=== PATIENT | male | born 1965 | race Caucasian/White ===

== ENCOUNTER → 2018-06-01 | Outpatient (CLI) | payer BC ==
--- NOTE | 2018-06-01 09:57 | CT ---
EXAM: CT Right Lower Extremity With Intravenous Contrast, Foot CLINICAL HISTORY: ITS.REASON CT Reason: M79.671 R foot pain TECHNIQUE: Axial computed tomography images of the right foot with intravenous contrast. CTDI is 9.9 and 9.9 mGy and DLP is 425.8 mGy-cm. This CT exam was performed using one or more of the following dose reduction techniques: automated exposure control, adjustment of the mA and/or kV according to patient size, and/or use of iterative reconstruction technique. 3D reconstructed images were created and reviewed. Coronal reformatted images were created and reviewed. Axial reformatted images were created and reviewed. COMPARISON: No relevant prior studies available. FINDINGS: Bones/joints: Degenerative changes are seen at the tibiotalar joint and tibiofibular joint. Degenerative changes are seen at the tarsometatarsal joints and intertarsal joints and talonavicular joints. Calcifications in the plantar aponeurosis at the level of the calcaneus as well as calcification of the insertion of the Achilles tendon. No acute fracture. No dislocation. Soft tissues: Thickening and subcutaneous edema is seen at the plantar aspect of the lateral forefoot especially in the region of the fifth metatarsophalangeal joint. No evidence of soft tissue gas. No gross bony destruction. The peroneal longus tendon is calcified and mildly rounded in size. No obvious abscess identified. IMPRESSION: Cellulitis of the fifth MTP joint. No evidence of soft tissue gas. No obvious abscess. No gross bony destruction.
== END | disposition home or self-care (01) ==
LOC: RADCTMAIN 08:04
PROVIDERS: ATTEND Orthopaedic Surgery
DX: L03.115 Cellulitis of right lower limb (principal)
CPT/HCPCS: 73702; Q9967

== ENCOUNTER → 2018-08-08 | Outpatient (CLI) | payer BC ==
--- NOTE | 2018-08-09 08:47 | CT ---
EXAMINATION TYPE: CT CervThoracic spine wo con DATE OF EXAM: 08/08/2018 COMPARISON: None HISTORY: Pain CT DLP: [address] of the cervical spine and thoracic spine was performed with bone and soft tissue window settings submitted. Coronal and sagittal reconstruction is obtained. Cervical spine: Moderate degenerative narrowing C4-5, C5-6 and C6-7. Ventral and dorsal spondylosis w ith posterior hard disc noted resulting in borderline central stenosis at C5-6 and C6-7. Bilateral fo raminal encroachment noted at each of these levels. Remaining levels are within normal limits. No fra cture or malalignment present. Thoracic spine: Mild multilevel degenerative disc space narrowing. Ventral spondylosis. No jammie disc herniation seen. Normal alignment. No paraspinal mass. No fracture or subluxation. IMPRESSION: 1. No evidence for fracture or subluxation. 2. Degenerative disc disease as noted. 3. Borderline stenosis at C5-6 and C6-7 with bilateral foraminal encroachment.
== END | disposition home or self-care (01) ==
LOC: RADCTMAIN 16:34
PROVIDERS: ATTEND Family Medicine
DX: M48.02 Spinal stenosis, cervical region (principal); M50.30 Other cervical disc degeneration, unspecified cervical region
CPT/HCPCS: 72125; 72128

== ENCOUNTER 2020-12-07 15:06 | Emergency (ER) | payer BC, OTHER ==
[2020-12-07] MEDS ORDERED: ASPIRIN 81 MG PO STA (15:23)
--- NOTE | 2020-12-07 15:30 | ED ---
Chest Pain HPI - General Chief Complaint: Chest Pain Stated Complaint: anxiety Time Seen by Provider: 12/07/20 15:22 Source: EMS Mode of arrival: EMS Limitations: no limitations - History of Present Illness Initial Comments: Paddy is a 55-year-old male presents the ER today for evaluation of chest pressure, shortness of breath and palpitations. Patient reports that he has no history of anxiety or panic attacks within the past 2 weeks he thinks he's had 6 or 7. He states he feels like his heart is racing, he can't catch his breath. He states that today he's been having pressure in his chest and shortness of breath. Denies any recent fevers chills nausea or vomiting. Denies any history of COVID. Is vaccinated. Patient does note that he has a little bit of psychosocial stressors with a girlfriend issue but not nothing significant to cause his new onset of panic attacks. After workup was initiated patient significant other arrived at bedside and stated that the patient was also previously very heavy drinker, he cut back his drinking 2 weeks ago and this is what precipitated these near panic attacks and episodes of palpitations and tremor. Patient does admit that he was a very heavy drinker and he has cut back significantly. - Related Data Home Medications Medication Instructions Recorded Confirmed Ascorbic Acid/Multivit-Min 1,000 mg PO DAILY 12/07/20 12/07/20 [Emergen-C 1,000 mg Packet] Aspirin EC [Ecotrin Low Dose] 81 mg PO DAILY 12/07/20 12/07/20 Atorvastatin [Lipitor] 20 mg PO DAILY 12/07/20 12/07/20 Ergocalciferol (Vitamin D2) 1,250 mcg PO TH 12/07/20 12/07/20 [Drisdol (50,000 Iu)] HYDROcodone/APAP 7.5-325MG [[place] 1 tab PO TID 12/07/20 12/07/20 7.5-325] Magnesium Oxide 400 mg PO DAILY 12/07/20 12/07/20 Metoprolol Tartrate [Lopressor] 25 mg PO DAILY 12/07/20 12/07/20 Testosterone Cypionate 200 mg IM SA 12/07/20 12/07/20 [Depo-Testosterone] amLODIPine BESYLATE/BENAZEPRIL 1 cap PO DAILY 12/07/20 12/07/20 [amLODIPine BESYLATE/BENAZEPRIL 10-40 MG] Allergies Allergy/AdvReac Type Severity Reaction Status Date / Time No Known Allergies Allergy Verified 12/07/20 20:44 Review of Systems ROS Statement: Those systems with pertinent positive or pertinent negative responses have been documented in the HPI. ROS Other: All systems not noted in ROS Statement are negative. EKG Findings - EKG Comments: EKG Findings:: EKG was obtained due to complaint of chest pressure, EKG was obtained 1509, rate is 98 rhythm is sinus there is in normal axis, there are normal intervals, SD 172, QRS 102, QTc is a 54 there are no acute ST elevations or depressions there is no evidence of acute ischemia or infarction. Past Medical History Past Medical History: Hyperlipidemia, Hypertension Additional Past Medical History / Comment(s): chronic neck pain History of Any Multi-Drug Resistant Organisms: None Reported Past Surgical History: Orthopedic Surgery Additional Past Surgical History / Comment(s): brain surgery for aneurysm Past Psychological History: Anxiety Smoking Status: Former smoker Past Alcohol Use History: None Reported Past Drug Use History: None Reported General Exam - General Exam Comments Initial Comments: Physical Exam GENERAL: Patient is well-developed and well-nourished. Patient is nontoxic and well- hydrated and is in no distress. HENT: Normocephalic, Atraumatic. EYES: PERRL, EOMI PULMONARY: Unlabored respirations. No audible rales rhonchi or wheezing was noted. CARDIOVASCULAR: Tachycardic, regular ABDOMEN: Soft and nontender with normal bowel sounds. SKIN: Skin is clear with no lesions or rashes and otherwise unremarkable. : Deferred NEUROLOGIC: Patient is alert and oriented x3. Moving all extremities spontaneously MUSCULOSKELETAL: Normal extremities with adequate strength and full range of motion. No lower extremity swelling or edema. No calf tenderness. PSYCHIATRIC: Normal psychiatric evaluation. Limitations: no limitations Course Vital Signs 12/07/20 12/07/20 12/07/20 15:08 16:38 18:00 Temperature 98.6 F Pulse Rate 104 H 107 H 100 Respiratory 20 18 18 Rate Blood Pressure 172/108 151/92 149/101 O2 Sat by Pulse 95 95 97 Oximetry 12/07/20 12/07/20 18:57 21:21 Temperature 98.1 F Pulse Rate 111 H 105 H Respiratory 18 18 Rate Blood Pressure 162/105 136/97 O2 Sat by Pulse 99 98 Oximetry Chest Pain MDM - MDM Patient was seen and evaluated history is obtained from the patient Upon arrival patient reported panic attacks palpitations and shortness of breath, initial workup was initiated with concern for PE given the palpitations and tachycardia however after workup was initiated patient's significant other at bedside and tried additional history of patient's previous heavy alcohol use and recent cessation which makes me think the patient has alcohol withdrawal. Labs are relatively unremarkable aside from elevated AST a healthy consistent with alcohol abuse. Lipase minimally elevated with patient not having any epigastric abdominal pain. Computed tomography scan negative. She will be treated with Ativan and magnesium to correct hypomagnesemia and treat anxiety. Patient was given an oral dose of Librium he'll be discharged home he has a scheduled appointment with his primary care tomorrow at noon in which she can t discuss further treatment for management of alcohol addiction. Disposition Clinical Impression: Alcohol withdrawal, Palpitations Disposition: HOME SELF-CARE Condition: Stable Instructions (If sedation given, give patient instructions): Alcohol Withdrawal (DC) Additional Instructions: Follow up with Dr Duarte tomorrow as scheduled Is patient prescribed a controlled substance at d/c from ED?: No Referrals: Quincy Duarte MD [Primary Care Provider] - 1-2 days
--- NOTE | 2020-12-07 15:48 | XR ---
EXAMINATION TYPE: XR chest 2V DATE OF EXAM: 12/07/2020 COMPARISON: 12/07/2020 HISTORY: Chest pain, panic attacks TECHNIQUE: Frontal and lateral views of the chest are obtained. FINDINGS: There is no focal air space opacity, pleural effusion, or pneumothorax seen. The cardiac silhouette size is within normal limits. IMPRESSION: No acute cardiopulmonary process.
[2020-12-07 16:20] LABS: Basophils # (A) 0.1 k/uL (0-0.2); Basophils % (A) 1 %; Eosinophils % (A) 1 %; HCT 40.6 % (39.0-53.0); Lymphocytes # (A) 0.9 k/uL (1.0-4.8); Lymphocytes % (A) 13 %; MCH 33.6 pg (25.0-35.0); MCHC 34.5 g/dL (31.0-37.0); MCV 97.5 fL (80.0-100.0); Mean Platelet Volume 8.4; Monocytes # (A) 0.4 k/uL (0-1.0); Monocytes % (A) 5 %; Neutrophils # (A) 5.8 k/uL (1.3-7.7); Neutrophils % (A) 79 %; Platelet Count 175 k/uL (150-450); RBC 4.16 m/uL (4.30-5.90); RDW 12.2 % (11.5-15.5); WBC 7.3 k/uL (3.8-10.6)
[2020-12-07 16:37] LABS: ALT 111 U/L (4-49); AST 157 U/L (17-59); African American GFR (CKD) >90 (>60 ml/min/1.73 sqM); Albumin 4.3 g/dL (3.5-5.0); Alkaline Phosphatase 67 U/L (38-126); Anion Gap 12 mmol/L; Blood Urea Nitrogen 13 mg/dL (9-20); Calcium 8.9 mg/dL (8.4-10.2); Carbon Dioxide 23 mmol/L (22-30); Chloride 104 mmol/L (98-107); Glucose 109 mg/dL (74-99); Lipase 387 U/L (23-300); Magnesium 1.3 mg/dL (1.6-2.3); Non-African American GFR(CKD) >90 (>60 ml/min/1.73 sqM); Sodium 139 mmol/L (137-145); Total Bilirubin 0.9 mg/dL (0.2-1.3); Total Protein 6.9 g/dL (6.3-8.2)
[2020-12-07 16:39] VITALS: RESP 18
[2020-12-07 16:41] LABS: INR 0.9 (<1.2); Prothrombin Time 10.2 sec (9.0-12.0)
[2020-12-07 16:49] LABS: Partial Thromboplastin Time 21.9 sec (22.0-30.0)
--- NOTE | 2020-12-07 17:18 | CT ---
EXAMINATION TYPE: CT chest angio for PE DATE OF EXAM: 12/07/2020 COMPARISON: None HISTORY: Tachycardia, hypoxia. CT DLP: 477.7 mGycm Automated exposure control for dose reduction was used. CONTRAST: Performed with IV Contrast, patient injected with 100 mL of Isovue 370. Images obtained from the thoracic inlet to the diaphragm with IV contrast and 3-D post processing. The lungs are clear of consolidation. There is no evidence of a pulmonary mass. There is no pleural e ffusion. There is no pericardial effusion. There is diffuse fatty infiltration of the liver. Heart size is normal. There are no hilar masses. There is no mediastinal adenopathy. Thoracic aorta i s intact. There is 4.4 cm aneurysm of the ascending aorta. There is no dissection. There is normal contrast opacification of the pulmonary arteries. There are no filling defects. IMPRESSION: No evidence of pulmonary embolism. Fatty infiltration of the liver. 4.4 cm thoracic aortic aneurysm. This is probably not changed significantly compared to the spine CT scan of 08/08/2018.
[2020-12-07] MEDS ORDERED: LORazepam 2 MG/ML INJ IV STA (19:05)
[2020-12-07] MEDS ORDERED: MAGNESIUM SULFATE-D5W PMX 1 GM in DEXTROSE/WATER 1 100ML.BAG IVPB ONE (19:05)
[2020-12-07] MEDS ORDERED: chlordiazePOXIDE 25 MG CAP PO STA (20:25)
[2020-12-07 21:22] VITALS: BP 136/97; PULSE 105; TEMP 98.1
== END 2020-12-07 21:25 | disposition home or self-care (01) ==
LOC: EC 15:06
DX: F10.239 Alcohol dependence with withdrawal, unspecified (principal); R07.89 Other chest pain; R06.02 Shortness of breath; E78.5 Hyperlipidemia, unspecified; I10 Essential (primary) hypertension; F41.9 Anxiety disorder, unspecified; Z87.891 Personal history of nicotine dependence; Z20.822 Contact with and (suspected) exposure to COVID-19; Z79.82 Long term (current) use of aspirin; Z79.899 Other long term (current) drug therapy; Y90.9 Presence of alcohol in blood, level not specified
CPT/HCPCS: 36415; 93005; 83880; 80053; 83690; 83735; 84484; 85025; 85610; 85730; 87635; 71046; 71275; 99285; 96365; 96375; J2060; J3475; Q9967

== ENCOUNTER 2021-02-02 07:55 | Inpatient (IN) | payer OTHER ==
[2021-02-02] MEDS ORDERED: LORazepam 2 MG/ML INJ IV STA (08:11)
[2021-02-02 08:21] LABS: Basophils # (A) 0.1 k/uL (0-0.2); Basophils % (A) 1 %; Eosinophils # (A) 0.1 k/uL (0-0.7); Eosinophils % (A) 1 %; HCT 46.2 % (39.0-53.0); HGB 15.7 gm/dL (13.0-17.5); Lymphocytes # (A) 1.2 k/uL (1.0-4.8); Lymphocytes % (A) 12 %; MCHC 33.9 g/dL (31.0-37.0); MCV 100.5 fL (80.0-100.0); Mean Platelet Volume 8.1; Monocytes # (A) 0.4 k/uL (0-1.0); Monocytes % (A) 4 %; Neutrophils % (A) 82 %; Platelet Count 192 k/uL (150-450); RDW 13.4 % (11.5-15.5); WBC 9.7 k/uL (3.8-10.6)
[2021-02-02 08:34] LABS: Partial Thromboplastin Time 25.2 sec (22.0-30.0); Prothrombin Time 10.5 sec (9.0-12.0)
[2021-02-02 08:36] LABS: Albumin 4.2 g/dL (3.5-5.0); Magnesium 1.2 mg/dL (1.6-2.3); Potassium 3.6 mmol/L (3.5-5.1); Total Bilirubin 0.4 mg/dL (0.2-1.3); Total Protein 6.9 g/dL (6.3-8.2)
--- NOTE | 2021-02-02 08:37 | XR ---
EXAMINATION TYPE: XR chest 2V DATE OF EXAM: 02/02/2021 COMPARISON: Chest x-ray and CTA chest 08/09/2020 HISTORY: Chest pain and shortness of breath TECHNIQUE: Frontal and lateral views of the chest are obtained. FINDINGS: There is chronic parenchymal change without suspicious new focal air space opacity, pleura l effusion, or pneumothorax seen. The cardiac silhouette size is stable and upper limits of normal. Multilevel spurring in the spine redemonstrated. Overlying EKG leads again seen. IMPRESSION: Chronic changes without acute pulmonary process.
[2021-02-02] MEDS ORDERED: THIAMINE 100 MG TAB PO STA (08:39)
[2021-02-02] MEDS ORDERED: MAGNESIUM SULFATE-D5W PMX 1 GM in DEXTROSE/WATER 1 100ML.BAG IVPB ONE (08:39)
--- NOTE | 2021-02-02 08:45 | ED ---
Chest Pain HPI - General Chief Complaint: Chest Pain Stated Complaint: chest pain Time Seen by Provider: 02/02/21 08:02 Source: patient, EMS, RN notes reviewed Mode of arrival: EMS Limitations: no limitations - History of Present Illness Initial Comments: 55-year-old male presents emergency Department chief complaint of chest discomfort. Patient states started having chest pain this morning he did not feel loss a pressure across his chest and started having some sweating, nausea vomiting. Patient's family room states that they found him on the ground he was groggy it's unclear he had a syncopal episode. Patient went of headache, neck pain. Patient does admit there is a daily drinker and is very shaky. No history of alcohol withdrawal seizures though he states he does have some withdrawal symptoms. Patient denies any nausea vomiting after Zofran given by EMS and states that the nitro took all this pain when his chest. - Related Data Home Medications Medication Instructions Recorded Confirmed Aspirin EC [Ecotrin Low Dose] 81 mg PO DAILY 12/07/20 02/02/21 Atorvastatin [Lipitor] 20 mg PO DAILY 12/07/20 02/02/21 Ergocalciferol (Vitamin D2) 1,250 mcg PO TH 12/07/20 02/02/21 [Drisdol (50,000 Iu)] HYDROcodone/APAP 7.5-325MG [[place] 1 tab PO TID PRN 12/07/20 02/02/21 7.5-325] Metoprolol Tartrate [Lopressor] 25 mg PO BID 12/07/20 02/02/21 Testosterone Cypionate 200 mg IM SA 12/07/20 02/02/21 [Depo-Testosterone] amLODIPine BESYLATE/BENAZEPRIL 1 cap PO DAILY 12/07/20 02/02/21 [amLODIPine BESYLATE/BENAZEPRIL 10-40 MG] Cyclobenzaprine [Flexeril] 10 mg PO TID PRN 02/02/21 02/02/21 Magnesium 500 mg PO DAILY 02/02/21 02/02/21 PARoxetine HCL [Paxil] 10 mg PO BID 02/02/21 02/02/21 chlordiazePOXIDE HCl [Librium] 10 mg PO TID 02/02/21 02/02/21 traZODone HCL [Desyrel] 100 mg PO HS 02/02/21 02/02/21 Allergies Allergy/AdvReac Type Severity Reaction Status Date / Time No Known Allergies Allergy Verified 02/02/21 09:05 Review of Systems ROS Statement: Those systems with pertinent positive or pertinent negative responses have been documented in the HPI. ROS Other: All systems not noted in ROS Statement are negative. EKG Findings - EKG Comments: EKG Findings:: EKG performed at 17:58 sinus tachycardia rate of 102 WA 180 QRS 94 QT/QTC 358/466 Past Medical History Past Medical History: Hyperlipidemia, Hypertension Additional Past Medical History / Comment(s): chronic neck pain History of Any Multi-Drug Resistant Organisms: None Reported Past Surgical History: Orthopedic Surgery Additional Past Surgical History / Comment(s): brain surgery for aneurysm Past Psychological History: Anxiety Smoking Status: Former smoker Past Alcohol Use History: Abuse, Daily, Heavy Past Drug Use History: None Reported General Exam Limitations: no limitations General appearance: alert, in no apparent distress, other (Patient is shaky) Head exam: Present: atraumatic, normocephalic, normal inspection ENT exam: Present: normal exam, mucous membranes moist Neck exam: Present: normal inspection, full ROM. Absent: tenderness, meningismus, lymphadenopathy Respiratory exam: Present: normal lung sounds bilaterally. Absent: respiratory distress, wheezes, rales, rhonchi, stridor Cardiovascular Exam: Present: normal rhythm, tachycardia, normal heart sounds. Absent: systolic murmur, diastolic murmur, rubs, gallop, clicks GI/Abdominal exam: Present: soft, normal bowel sounds. Absent: distended, tenderness, guarding, rebound, rigid Course Vital Signs 02/02/21 02/02/21 08:03 09:37 Temperature 97.8 F Pulse Rate 98 110 H Respiratory 18 18 Rate Blood Pressure 144/95 128/94 O2 Sat by Pulse 98 95 Oximetry Chest Pain MDM - MDM 55-year-old male presented for chest pain. Patient's chest pain resolved after nitro given by EMS. Patient has multiple risk factors. First troponin is negative. Patient did have questional syncopal episode versus seizure. Patient will be admitted for chest pain, alcohol withdrawal, hypomagnesemia. Magnesium was replaced. Disposition Clinical Impression: Chest pain, Syncope, Hypomagnesemia Disposition: ADMITTED IP TO THIS HOSP Condition: Fair Referrals: Quincy Duarte MD [Primary Care Provider] - 1-2 days
[2021-02-02] MEDS ORDERED: ONDANSETRON 4 MG/2 ML VIAL IVP STA (09:38)
[2021-02-02] MEDS ORDERED: MORPHINE SULFATE 4 MG/ML SYRINGE IVP STA (09:38)
--- NOTE | 2021-02-02 11:21 | CT ---
EXAMINATION TYPE: CT chest angio for PE DATE OF EXAM: 02/02/2021 COMPARISON: 12/07/2020 HISTORY: 55-year-old male chest pain TECHNIQUE: Contiguous axial scanning of the chest performed with IV Contrast, patient injected with 1 00 mL of Isovue 370. Coronal/sagittal MIP reconstructions performed. CT DLP: 496 mGycm Automated exposure control for dose reduction was used. FINDINGS: Heart limits of normal in size without pericardial effusion. No flattening of the interventricular se ptum or reflux of contrast into the hepatic veins. Aortic root mildly aneurysmal at 4.0 cm versus 3.8 mm, previously. Suspect some motion artifact large difference. Stable ascending aortic aneurysm at 4.4 cm. Conventional arch vessel branching anatomy. Ectatic upper descending thoracic aorta at 3.6 cm, unchanged. Some borderline-sized mediastinal lymph nodes measuring up to 9 mm lower right paratracheal and small lymph nodes lower left paratracheal measuring up to 7 mm. No thoracic lymphadenopathy by CT size cri teria. There is suboptimal contrast bolus. Further limitations due to breathing motion. No large central or definite lobar branch pulmonary embolus. Multiple segmental and more distal arterial branches are ess entially nondiagnostic especially about the left hilum, for example, axial image 56, 76, and 81. Mild diffuse bronchial wall thickening. Minimal apical paraseptal emphysema. No consolidation or pleu ral effusion. Visualized upper abdomen shows low-attenuation of the hepatic parenchyma and tiny hiatal hernia. Bones: [facility] within the mid and lower thoracic spine. IMPRESSION: 1. EXCESSIVE BREATHING MOTION ARTIFACT ESPECIALLY ABOUT THE LEFT HILUM. SEGMENTAL AND SMALLER ARTERIA L BRANCHES ON THE LEFT, FOR EXAMPLE, AXIAL IMAGES 56, 76, AND 81 ARE NONDIAGNOSTIC AND EMBOLI IN THES E LOCATIONS CANNOT BE EXCLUDED ON THE BASIS OF THIS EXAM. NO LARGE CENTRAL OR DEFINITE LOBAR BRANCH E MBOLUS. 2. ANEURYSMAL ASCENDING AORTA 4.4 CM, UNCHANGED COMPARED TO RECENT 12/07/2020 PRIOR. 3. HEPATIC STEATOSIS.
[2021-02-02] MEDS ORDERED: NITROGLYCERIN SL TABS 0.4 MG TAB SUBLINGUAL PRN (11:26)
[2021-02-02] MEDS ORDERED: LORazepam 2 MG/ML INJ IV PRN (11:38)
--- NOTE | 2021-02-02 12:42 | P.HPIM ---
<Edenilson Guzmán - Last Filed: 02/02/21 17:44> History of Present Illness H&P Date: 02/02/21 History of Presenting Illness: Patient is a 55-year-old male with a past medical history of hypertension, hyperlipidemia, and EtOH use/abuse reportedly drinking 1 quart or more of whiskey daily. Patient presented to the emergency department today with a chief complaint of chest pain accompanied by nausea, vomiting, diaphoresis, and tremors. Patient was reportedly found on the ground by family after unknown down time. Patient reports last time drinking was yesterday morning and he is actively withdrawing. Patient reports last time withdrawing from alcohol was approximately 9 years ago and reports daily drinking since. He reports he used to drink approximately 1 pint a day but states over the last year this has significantly increased and he is drinking a minimum of a quart of whiskey daily. Patient denies history of withdrawal seizures but does state that he starts "withdrawing bad" if he goes too long without alcohol. Patient denies having headache, lightheadedness, dizziness, changes in his vision or hearing, palpitations, shortness of breath, abdominal pain, nausea, or experiencing any numbness/tingling/weakness in his extremities. Patient reports chest pain has resided. Patient was seen and fully evaluated in the emergency department. CBC unremarkable. BMP unremarkable. Hypomagnesemia with magnesium of 1.2, replaced. Liver enzymes elevated with AST of 146 and ALP of 95. Lipase also slightly elevated at 472. Serum alcohol level 29. D-dimer slightly elevated at 1.98. CT PE negative for acute central large pulmonary emboli or definite lobar branch emboli, however did reveal an aortic aneurysm of the ascending aorta measuring 4.4 cm unchanged from previous examination, and hepatic steatosis. Chest x-ray negative for acute cardiopulmonary process. EKG showing sinus tachycardia at 102 bpm with no noted T-wave or ST abnormalities. Patient ad mitted under our services for atypical chest pain along with acute alcohol withdrawal. Cardiology consulted. Review of systems: Pertinent positives and negatives as discussed in HPI, a complete review of systems was performed and all other systems are negative. Physical exam: Vital signs reviewed and stable. General: Nontoxic, patient appears in mild distress secondary to physical signs of withdrawal including diaphoresis and tremors. Derm: Skin diaphoretic, warm, and normal coloration. Head: Atraumatic, normocephalic and symmetric. Eyes: EOMs intact, no lid lag, and anicteric sclera Mouth: no lip lesions, mucus membranes moist Cardiovascular: Tachycardic rate with regular rhythm with normal S1S2, no murmur, positive posterior tibial pulses bilaterally, and cap refill < 2 seconds. Lungs: Respirations even, regular, and unlabored on room air. Lungs CTA bilaterally, no rhonchi, no rales, no wheezing, and no accessory muscle usage. Abdominal: soft, nontender to palpation, no guarding, no appreciable organomegaly Ext: ROM intact. No gross muscle atrophy, no edema, no contractures Neuro: Speech clear, face symmetrical and CN II-XII grossly intact with no noted focal neuro deficits. Moderate tremors noted. Psych: Alert and oriented to person, place, time, and situation. Appropriate and pleasant affect. Patient denies visual, tactile, or auditory hallucinations. Assessment and Plan of Care: Atypical chest pain, likely secondary to acute alcohol withdrawal vs ACS -Troponins 0.013, 0.014, and 0.017 -EKG showing sinus tachycardia at 102 bpm with no noted T-wave or ST abnormalities. -Cardiology consulted -Telemetry monitoring -Continue daily aspirin, atorvastatin, metoprolol. -Echocardiogram -Lipid profile and hemoglobin A1c with a.m. labs Acute Alcohol withdrawal Syncopal episode, possible alcohol withdrawal seizure -Serum alcohol 29 -Telemetry monitoring -[facility] protocol with symptom triggered medication management -Consult to social work for assistance with possible rehabilitation placement upon discharge versus providing patient with outpatient resources available to him. Seizure precautions, fall precautions, and aspiration precautions in place. Daily thiamine Hypomagnesemia Magnesium 1.2, replaced with 3 g IVPB We will continue to monitor with repeat a.m. labs and replace electrolyte abnormalities as needed. Hypertension Monitor vital signs and continue daily medication regimen with amlodipine, lisinopril, and metoprolol. Hyperlipidemia Continue daily medication regimen with atorvastatin 20 mg nightly. The patient is admitted with an anticipated greater than 2 midnight stay for evaluation of atypical chest pain and acute alcohol withdrawal CODE STATUS: Full code DVT prophylaxis: Heparin Discussed with: Patient and RN Anticipated discharge date: Clinical course to determine Anticipated discharge place: Home versus inpatient drug and alcohol rehabilitation Center A total of 45 minutes was spent on the care of this complex patient more than 50% of the time was spent in counseling and care coordination. Past Medical History Past Medical History: Hyperlipidemia, Hypertension Additional Past Medical History / Comment(s): chronic neck pain History of Any Multi-Drug Resistant Organisms: None Reported Past Surgical History: Orthopedic Surgery Additional Past Surgical History / Comment(s): brain surgery for aneurysm Past Psychological History: Anxiety Smoking Status: Former smoker Past Alcohol Use History: Abuse, Daily, Heavy Past Drug Use History: None Reported Medications and Allergies Home Medications Medication Instructions Recorded Confirmed Type Aspirin EC [Ecotrin Low Dose] 81 mg PO DAILY 12/07/20 02/02/21 History Atorvastatin [Lipitor] 20 mg PO DAILY 12/07/20 02/02/21 History Ergocalciferol (Vitamin D2) 1,250 mcg PO TH 12/07/20 02/02/21 History [Drisdol (50,000 Iu)] HYDROcodone/APAP 7.5-325MG [[place] 1 tab PO TID PRN 12/07/20 02/02/21 History 7.5-325] Metoprolol Tartrate [Lopressor] 25 mg PO BID 12/07/20 02/02/21 History Testosterone Cypionate 200 mg IM SA 12/07/20 02/02/21 History [Depo-Testosterone] amLODIPine BESYLATE/BENAZEPRIL 1 cap PO DAILY 12/07/20 02/02/21 History [amLODIPine BESYLATE/BENAZEPRIL 10-40 MG] Cyclobenzaprine [Flexeril] 10 mg PO TID PRN 02/02/21 02/02/21 History Magnesium 500 mg PO DAILY 02/02/21 02/02/21 History PARoxetine HCL [Paxil] 10 mg PO BID 02/02/21 02/02/21 History chlordiazePOXIDE HCl [Librium] 10 mg PO TID 02/02/21 02/02/21 History traZODone HCL [Desyrel] 100 mg PO HS 02/02/21 02/02/21 History Allergies Allergy/AdvReac Type Severity Reaction Status Date / Time No Known Allergies Allergy Verified 02/02/21 09:05 Physical Exam Vitals: Vital Signs Temp Pulse Resp BP Pulse Ox 02/02/21 09:37 110 H 18 128/94 95 02/02/21 08:03 97.8 F 98 18 144/95 98 Intake and Output 02/01/21 02/02/21 02/02/21 22:59 06:59 14:59 Other: Weight 104.326 kg Results CBC & Chem 7: 02/02/21 08:13 02/02/21 08:13 Labs: Abnormal Lab Results - Last 24 Hours (Table) 02/02/21 02/02/21 02/02/21 Range/Units 08:13 08:13 08:13 MCV 100.5 H (80.0-100.0) fL Neutrophils # 8.0 H (1.3-7.7) k/uL D-Dimer 1.90 H (<0.60) mg/L FEU Carbon Dioxide 17 L (22-30) mmol/L Glucose 110 H (74-99) mg/dL Magnesium 1.2 L (1.6-2.3) mg/dL AST 146 H (17-59) U/L ALT 95 H (4-49) U/L Lipase 472 H (23-300) U/L <Jennifer Vanegas - Last Filed: 02/02/21 19:45> History of Present Illness Patient seen and examined independently. Patient was also seen by Edenilson Guzmán NP and case was discussed. I am in agreement with subjective, physical exam, assessment and plan as written above and amended below. Patient seen intermittently get himself back in bed. Heart rate is 150, blood pressure 155/108. He reports nausea, headache, diaphoresis, inability to sit still, and anxiety. He reports he thinks is getting worse throughout the day today. With family present at bedside we discussed that he'll get an additional 2 mg of Ativan, increases Librium dosing. He may get worse before he gets better. We discussed alcohol withdrawal can be life-threatening. Patient has not, day without drinking in the last 9 years. He has been drinking more heavily it sounds like to him that morning alcohol withdrawal upon waking. General: Ill-appearing, diaphoretic, no distress, appears at stated age Derm: warm, dry Head: atraumatic, normocephalic, symmetric Eyes: EOMI, no lid lag, anicteric sclera Mouth: no lip lesion, mucus membranes moist Cardiovascular: S1S2 tachycardic, positive posterior tibial pulse bilateral, Lungs: CTA bilateral, no rhonchi, no rales , no accessory muscle use Abdominal: soft, nontender to palpation, no guarding, no appreciable organomegaly Ext: no gross muscle atrophy, no edema, no contractures Neuro: CN II-XI grossly intact, no focal neuro deficits no tremors Psych: Alert, oriented, appropriate affect , inability to sit still Physical Exam Osteopathic Statement: *. No significant issues noted on an osteopathic structural exam other than those noted in the History and Physical/Consult. Vitals: Vital Signs Temp Pulse Resp BP Pulse Ox 02/02/21 18:39 97.8 F 109 H 18 132/83 94 L 02/02/21 17:18 107 H 18 147/98 95 02/02/21 16:12 98 18 138/94 95 02/02/21 13:49 103 H 18 124/93 98 02/02/21 12:49 123 H 18 155/105 96 02/02/21 09:37 110 H 18 128/94 95 02/02/21 08:03 97.8 F 98 18 144/95 98 Intake and Output 02/02/21 02/02/21 02/02/21 06:59 14:59 22:59 Other: Weight 104.326 kg Results CBC & Chem 7: 02/02/21 08:13 02/02/21 08:13 Labs: Abnormal Lab Results - Last 24 Hours (Table) 02/02/21 02/02/21 02/02/21 Range/Units 08:13 08:13 08:13 MCV 100.5 H (80.0-100.0) fL Neutrophils # 8.0 H (1.3-7.7) k/uL D-Dimer 1.90 H (<0.60) mg/L FEU Carbon Dioxide 17 L (22-30) mmol/L Glucose 110 H (74-99) mg/dL Magnesium 1.2 L (1.6-2.3) mg/dL AST 146 H (17-59) U/L ALT 95 H (4-49) U/L Lipase 472 H (23-300) U/L
[2021-02-02] MEDS: LORazepam 2 MG/ML INJ IV PRN ×3 (12:53→20:22)
[2021-02-02] MEDS ORDERED: PROCHLORPERAZINE INJ 10 MG/2 ML VIAL IVP PRN (17:43)
[2021-02-02] MEDS: PANTOPRAZOLE 40 MG/10 ML VIAL IVP SCH (18:41)
[2021-02-02] MEDS: MAGNESIUM SULFATE-D5W PMX 1 GM in DEXTROSE/WATER 1 100ML.BAG IVPB SCH ×2 (18:42→19:52)
[2021-02-02] MEDS: HYDROcodone/APAP 7.5-325MG 1 EACH TAB PO PRN (18:43)
[2021-02-02] MEDS: METOPROLOL TARTRATE 25 MG TAB PO SCH (21:05)
[2021-02-02] MEDS: traZODone HCL 100 MG TAB PO SCH (21:05)
[2021-02-02] MEDS: PARoxetine 10 MG TAB PO SCH (22:11)
[2021-02-03] MEDS: HEPARIN SODIUM,PORCINE/PF 5,000 UNIT/0.5 ML SYRINGE SQ SCH ×3 (01:47→17:16)
[2021-02-03] MEDS: LORazepam 2 MG/ML INJ IV PRN ×3 (03:31→17:17)
[2021-02-03] MEDS: lisinopriL 20 MG TAB PO SCH (08:44)
[2021-02-03] MEDS: amLODIPine 10 MG TAB PO SCH (08:44)
[2021-02-03] MEDS: ATORVASTATIN 20 MG TAB PO SCH (08:44)
[2021-02-03] MEDS: ASPIRIN 81 MG PO SCH (08:44)
[2021-02-03] MEDS: MAGNESIUM OXIDE 400 MG TAB PO SCH (08:45)
[2021-02-03] MEDS: PANTOPRAZOLE 40 MG/10 ML VIAL IVP SCH (08:45)
[2021-02-03] MEDS: METOPROLOL TARTRATE 25 MG TAB PO SCH ×2 (08:45→21:34)
[2021-02-03] MEDS ORDERED: ASPIRIN 325 MG TAB PO SCH (09:00)
[2021-02-03] MEDS ORDERED: DOBUTamine DRIP for NUC MED 500 MG in DEXTROSE/WATER 1 250ML.BAG IV PRN (09:19)
[2021-02-03] MEDS: HYDROcodone/APAP 7.5-325MG 1 EACH TAB PO PRN ×3 (09:47→22:40)
[2021-02-03] MEDS: PARoxetine 10 MG TAB PO SCH ×2 (09:48→22:40)
[2021-02-03 10:19] LABS: HCT 41.3 % (39.0-53.0); HGB 13.9 gm/dL (13.0-17.5); MCH 33.8 pg (25.0-35.0); MCHC 33.6 g/dL (31.0-37.0); MCV 100.7 fL (80.0-100.0); Mean Platelet Volume 8.9; Platelet Count 151 k/uL (150-450); RBC 4.11 m/uL (4.30-5.90); RDW 12.6 % (11.5-15.5); WBC 4.9 k/uL (3.8-10.6)
[2021-02-03 10:35] LABS: ALT 88 U/L (4-49); AST 157 U/L (17-59); African American GFR (CKD) >90 (>60 ml/min/1.73 sqM); Albumin 3.4 g/dL (3.5-5.0); Alkaline Phosphatase 75 U/L (38-126); Anion Gap 6 mmol/L; Blood Urea Nitrogen 9 mg/dL (9-20); Calcium 8.7 mg/dL (8.4-10.2); Carbon Dioxide 27 mmol/L (22-30); Chloride 101 mmol/L (98-107); Glucose 166 mg/dL (74-99); Magnesium 1.7 mg/dL (1.6-2.3); Non-African American GFR(CKD) >90 (>60 ml/min/1.73 sqM); Potassium 3.4 mmol/L (3.5-5.1); Sodium 134 mmol/L (137-145)
--- NOTE | 2021-02-03 11:00 | ECHOF ---
Referral Reason:chest pain MEASUREMENTS -------- HEIGHT: 182.9 cm WEIGHT: 104.3 kg BP: 128/94 RVIDd: 3.6 cm (< 3.3) IVSd: 1.6 cm (0.6 - 1.1) LVIDd: 3.4 cm (3.9 - 5.3) LVPWd: 1.4 cm (0.6 - 1.1) IVSs: 2.0 cm LVIDs: 2.5 cm LVPWs: 1.9 cm LA Diam: 3.2 cm (2.7 - 3.8) LAESV Index (A-L): 31.18 ml/m Ao Diam: 4.2 cm (2.0 - 3.7) AV Cusp: 2.2 cm (1.5 - 2.6) MV EXCURSION: 20.130 mm (> 18.000) MV EF SLOPE: 220 mm/s (70 - 150) EPSS: 0.2 cm MV E Jewel: 0.58 m/s MV DecT: 156 ms MV A Jewel: 0.90 m/s MV E/A Ratio: 0.64 FINDINGS -------- Resting tachycardia (HR>100bpm). This was a technically adequate study. The left ventricular size is normal. There is moderate concentric left ventricular hypertrophy. O verall left ventricular systolic function is normal with, an EF between 60 - 65 %. The right ventricle is mildly enlarged. Normal LA size by volume 22+/-6 ml/m2. The right atrium is normal in size. Interatrial and interventricular septum intact. The aortic valve is trileaflet, and appears structurally normal. No aortic stenosis or regurgitation. The mitral valve is normal. Trace tricuspid regurgitation present. Unable to estimate RVSP due to inadequate TR jet spectral do ppler profile. The pulmonic valve was not well visualized. 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 IVC Not well visulized. There is no pericardial effusion. CONCLUSIONS -------- 1. Resting tachycardia (HR>100bpm). 2. The left ventricular size is normal. 3. There is moderate concentric left ventricular hypertrophy. 4. Overall left ventricular systolic function is normal with, an EF between 60 - 65 %. 5. The right ventricle is mildly enlarged. 6. Normal LA size by volume 22+/-6 ml/m2. 7. The aortic valve is trileaflet, and appears structurally normal. No aortic stenosis or regurgitati on. 8. Trace tricuspid regurgitation present. 9. 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 10. There is no pericardial effusion. OPERATIONS EXAMINER: Brissa Pereira RDCS
--- NOTE | 2021-02-03 11:05 | P.CRDCN ---
History of Present Illness History of present illness: HISTORY OF PRESENTING ILLNESS This is a pleasant 55-year-old male past medical history significant for hypertension, dyslipidemia and alcohol abuse. 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 We have been asked to see in consultation for chest pain. He states he has been sober since November until last week. He started drinking heavily again last week. Yesterday he woke up feeling unwell. He states he felt tired, shaky and short of breath. He knew something bad was going to happen so he put his dog and is Cage and unlocked his front door. The next thing he remembers is being woke up on the floor of his kitchen. Apparently his girlfriend found him there passed out. He states he does recall feeling some chest pressure prior to passing out. He said his heart was racing extremely fast. He has had no further symptoms of chest discomfort or palpitations since arriving at the hospital. EKG on arrival reveals sinus tachycardia. Telemetry tracings reveal sinus rhythm with intermittent episodes of tachycardia all sinus in origin. Chest x-ray is negative for acute cardiopulmonary process. CTA is nondiagnostic for a large pulmonary embolism however due to significant movement artifact unable to comp letely rule out. Laboratory data reviewed, CBC unremarkable, d-dimer 1.9, sodium 134, potassium 3.4, creatinine 0.89, magnesium on admission 1.2 after supplementation 1.7, cardiac enzymes negative 3, lipase 472 and alcohol level XXIX. Crit daily cardiac medications include metoprolol 25 mg twice a day, aspirin 81 mg daily, atorvastatin 20 mg daily and amlodipine/benazepril 10/40 mg daily. Echocardiogram obtained this admission reveals preserved LV systolic function with ejection fraction 60-65%. REVIEW OF SYSTEMS At the time of my exam: CONSTITUTIONAL: Denies fever or chills. CARDIOVASCULAR: Denies chest pain, shortness of breath, orthopnea, PND or palpitations. RESPIRATORY: Denies cough. GASTROINTESTINAL: Denies abdominal pain, diarrhea, constipation, nausea or vomiting. MUSCULOSKELETAL: Denies myalgias. NEUROLOGIC: Denies numbness, tingling, headache or weakness. ENDOCRINE: Denies fatigue, weight change, polydipsia or polyurina. GENITOURINARY: Denies burning, hematuria or urgency with micturation. HEMATOLOGIC: Denies history of anemia or bleeding. PHYSICAL EXAMINATION Blood pressure 134/89 heart rate 90 afebrile and maintaining oxygen saturation on room air. CONSTITUTIONAL: No apparent distress. HEENT: Head is normocephalic. Pupils are equal, round. Sclerae anicteric. Mucous membranes of the mouth are moist. No JVD. No carotid bruit. CHEST EXAMINATION: Lungs are clear to auscultation. No chest wall tenderness is noted on palpation or with deep breathing. HEART EXAMINATION: Regular rate and rhythm. S1, S2 heard. No murmurs, gallops or rub. ABDOMEN: Soft, nontender. EXTREMITIES: 2+ peripheral pulses, no lower extremity edema and no calf tenderness. NEUROLOGIC EXAMINATION: Patient is awake, alert and oriented x3. ASSESSMENT Chest pain Syncope Alcohol abuse Possible alcohol withdrawal Hypertension Dyslipidemia Hypomagnesemia PLAN An acute coronary event has been ruled out. No evidence of wall motion abnormalities noted on echocardiogram and EKG unremarkable. Symptoms possibly related to an arrhythmia. Patient has eaten and had all of his medications this morning therefore we will postpone stress testing until tomorrow morning. Perform dobutamine stress echocardiogram to assess for stress-induced ischemia also evaluated for possible inducing arrhythmia. Alcohol cessation strongly recommended. Replace magnesium per protocol. Further recommendations to follow based upon clinical course. Thank you kindly for this consultation. Nurse Practitioner note has been reviewed, I agree with a documented findings and plan of care. Patient was seen and examined. Past Medical History Past Medical History: Hyperlipidemia, Hypertension Additional Past Medical History / Comment(s): chronic neck pain History of Any Multi-Drug Resistant Organisms: None Reported Past Surgical History: Orthopedic Surgery Additional Past Surgical History / Comment(s): brain surgery for aneurysm Past Psychological History: Anxiety Smoking Status: Former smoker Past Alcohol Use History: Abuse, Daily, Heavy Past Drug Use History: None Reported Medications and Allergies Home Medications Medication Instructions Recorded Confirmed Type Aspirin EC [Ecotrin Low Dose] 81 mg PO DAILY 12/07/20 02/02/21 History Atorvastatin [Lipitor] 20 mg PO DAILY 12/07/20 02/02/21 History Ergocalciferol (Vitamin D2) 1,250 mcg PO TH 12/07/20 02/02/21 History [Drisdol (50,000 Iu)] HYDROcodone/APAP 7.5-325MG [[place] 1 tab PO TID PRN 12/07/20 02/02/21 History 7.5-325] Metoprolol Tartrate [Lopressor] 25 mg PO BID 12/07/20 02/02/21 History Testosterone Cypionate 200 mg IM SA 12/07/20 02/02/21 History [Depo-Testosterone] amLODIPine BESYLATE/BENAZEPRIL 1 cap PO DAILY 12/07/20 02/02/21 History [amLODIPine BESYLATE/BENAZEPRIL 10-40 MG] Cyclobenzaprine [Flexeril] 10 mg PO TID PRN 02/02/21 02/02/21 History Magnesium 500 mg PO DAILY 02/02/21 02/02/21 History PARoxetine HCL [Paxil] 10 mg PO BID 02/02/21 02/02/21 History chlordiazePOXIDE HCl [Librium] 10 mg PO TID 02/02/21 02/02/21 History traZODone HCL [Desyrel] 100 mg PO HS 02/02/21 02/02/21 History Allergies Allergy/AdvReac Type Severity Reaction Status Date / Time No Known Allergies Allergy Verified 02/02/21 09:05 Physical Exam Vitals: Vital Signs Temp Pulse Pulse Resp BP BP Pulse Ox 02/03/21 04:00 98.0 F 80 18 146/84 97 02/03/21 02:00 101 H 18 02/03/21 00:00 97.4 F L 101 H 18 152/95 98 02/02/21 20:00 98.2 F 101 H 18 158/98 96 02/02/21 18:39 97.8 F 109 H 18 132/83 94 L 02/02/21 17:18 107 H 18 147/98 95 02/02/21 16:12 98 18 138/94 95 02/02/21 14:04 98.2 F 100 18 149/97 95 02/02/21 13:49 103 H 18 124/93 98 02/02/21 12:49 123 H 18 155/105 96 02/02/21 09:37 110 H 18 128/94 95 Intake and Output 02/02/21 02/03/21 02/03/21 22:59 06:59 14:59 Intake Total 340 Balance 340 Intake: Intake, IV Titration 100 Amount Magnesium Sulfate-D5w Pmx 100 1 gm In Dextrose/Water 1 100ml.bag @ 100 mls/hr IVPB Q1H [facility] Rx#: [id number] Oral 240 Other: Voiding Method Toilet Toilet Urinal Urinal # Voids 1 2 Weight 102.5 kg Results 02/03/21 09:15 02/03/21 09:15 Cardiac Enzymes 02/02/21 02/02/21 02/02/21 Range/Units 08:13 08:13 11:47 AST 146 H (17-59) U/L Troponin I 0.013 0.014 (0.000-0.034) ng/mL 02/02/21 Range/Units 14:10 AST (17-59) U/L Troponin I 0.017 (0.000-0.034) ng/mL Coagulation 02/02/21 Range/Units 08:13 PT 10.5 (9.0-12.0) sec APTT 25.2 (22.0-30.0) sec Comprehensive Metabolic Panel 02/02/21 Range/Units 08:13 Sodium 138 (137-145) mmol/L Potassium 3.6 (3.5-5.1) mmol/L Chloride 105 (98-107) mmol/L Carbon Dioxide 17 L (22-30) mmol/L BUN 20 (9-20) mg/dL Creatinine 1.13 (0.66-1.25) mg/dL Glucose 110 H (74-99) mg/dL Calcium 9.0 (8.4-10.2) mg/dL AST 146 H (17-59) U/L ALT 95 H (4-49) U/L Alkaline Phosphatase 111 (38-126) U/L Total Protein 6.9 (6.3-8.2) g/dL Albumin 4.2 (3.5-5.0) g/dL Current Medications Generic Name Dose Route Start Last Admin Trade Name Freq PRN Reason Stop Dose Admin Hydrocodone Bitart/Acetaminophen 1 each 02/02/21 14:00 02/02/21 18:43 Hydrocodone/Apap 7.5-325mg 1 Each Tab PO 1 each TID PRN Administration Pain Amlodipine Besylate 10 mg 02/03/21 09:00 Amlodipine 10 Mg Tab PO DAILY [facility] Aspirin 81 mg 02/03/21 09:00 Aspirin 81 Mg PO DAILY [facility] Atorvastatin Calcium 20 mg 02/03/21 09:00 Atorvastatin 20 Mg Tab PO DAILY [facility] Chlordiazepoxide HCl 20 mg 02/03/21 09:00 Chlordiazepoxide 10 Mg Cap PO TID [facility] Ergocalciferol 1,250 mcg 02/04/21 09:00 Ergocalciferol 1,250 Mcg (50,000 Iu) Capsule PO Th@0900 [facility] Heparin Sodium (Porcine) 5,000 unit 02/03/21 00:00 02/03/21 01:47 Heparin Sodium,Porcine/Pf 5,000 Unit/0.5 Ml Syringe SQ Not Given Q8HR [facility] Lisinopril 40 mg 02/03/21 09:00 Lisinopril 20 Mg Tab PO DAILY [facility] Lorazepam 1 mg 02/02/21 11:38 02/03/21 03:31 Lorazepam 2 Mg/Ml Inj IV 1 mg Q2HR PRN Administration CIWA 8 or 9 Lorazepam 1 mg 02/02/21 11:38 Lorazepam 2 Mg/Ml Inj IV Q1HR PRN CIWA 10 to 15 Lorazepam 2 mg 02/02/21 11:38 02/02/21 18:18 Lorazepam 2 Mg/Ml Inj IV 02/04/21 11:38 2 mg Q10M PRN Administration CIWA 16 or higher Magnesium Oxide 400 mg 02/03/21 09:00 Magnesium Oxide 400 Mg Tab PO DAILY [facility] Metoprolol Tartrate 25 mg 02/02/21 21:00 02/02/21 21:05 Metoprolol Tartrate 25 Mg Tab PO 25 mg BID [facility] Administration Nitroglycerin 0.4 mg 02/02/21 11:26 Nitroglycerin Sl Tabs 0.4 Mg Tab SUBLINGUAL Q5M PRN Chest Pain Pantoprazole Sodium 40 mg 02/02/21 18:30 02/02/21 18:41 Pantoprazole 40 Mg/10 Ml Vial IVP 40 mg DAILY [facility] Administration Paroxetine HCl 10 mg 02/02/21 21:00 02/02/21 22:11 Paroxetine 10 Mg Tab PO Not Given BID [facility] Prochlorperazine Edisylate 10 mg 02/02/21 17:43 02/02/21 20:13 Prochlorperazine Inj 10 Mg/2 Ml Vial IVP 10 mg Q6H PRN Administration Nausea Trazodone HCl 100 mg 02/02/21 21:00 02/02/21 21:05 Trazodone Hcl 100 Mg Tab PO 100 mg HS [facility] Administration Intake and Output 02/02/21 02/03/21 02/03/21 22:59 06:59 14:59 Intake Total 340 Balance 340 Intake: Intake, IV Titration 100 Amount Magnesium Sulfate-D5w Pmx 100 1 gm In Dextrose/Water 1 100ml.bag @ 100 mls/hr IVPB Q1H [facility] Rx#: [id number] Oral 240 Other: Voiding Method Toilet Toilet Urinal Urinal # Voids 1 2 Weight 102.5 kg 02/02/21 08:13 02/02/21 08:13
[2021-02-03] MEDS ORDERED: POTASSIUM CHLORIDE ER 20 MEQ TAB.ER PO STA (16:40)
--- NOTE | 2021-02-03 16:47 | P.PN ---
<Edenilson Guzmán - Last Filed: 02/03/21 16:35> Subjective Progress Note Date: 02/03/21 History of Presenting Illness: Patient is a 55-year-old male with a past medical history of hypertension, hyperlipidemia, and EtOH use/abuse reportedly drinking 1 quart or more of whiskey daily. Patient presented to the emergency department today with a chief complaint of chest pain accompanied by nausea, vomiting, diaphoresis, and tremors. Patient was reportedly found on the ground by family after unknown down time. Patient reports last time drinking was yesterday morning and he is actively withdrawing. Patient reports last time withdrawing from alcohol was approximately 9 years ago and reports daily drinking since. He reports he used to drink approximately 1 pint a day but states over the last year this has significantly increased and he is drinking a minimum of a quart of whiskey daily. Patient denies history of withdrawal seizures but does state that he starts "withdrawing bad" if he goes too long without alcohol. Patient denies having headache, lightheadedness, dizziness, changes in his vision or hearing, palpitations, shortness of breath, abdominal pain, nausea, or experiencing any numbness/tingling/weakness in his extremities. Patient reports chest pain has resided. Patient was seen and fully evaluated in the emergency department. CBC unremarkable. BMP unremarkable. Hypomagnesemia with magnesium of 1.2, replaced. Liver enzymes elevated with AST of 146 and ALP of 95. Lipase also slightly elevated at 472. Serum alcohol level 29. D-dimer slightly elevated at 1.98. CT PE negative for acute central large pulmonary emboli or definite lobar branch emboli, however did reveal an aortic aneurysm of the ascending aorta measuring 4.4 cm unchanged from previous examination, and hepatic steatosis. Chest x-ray negative for acute cardiopulmonary process. EKG showing sinus tachycardia at 102 bpm with no noted T-wave or ST abnormalities. Patient admitted under our services for atypical chest pain along with acute alcohol withdrawal. Cardiology consulted. : Patient seen and fully evaluated at the bedside this morning. He received a total of 8 mg of Ativan and 30 mg of Librium over the past 12 hours. Patient continues with obvious signs and symptoms of withdrawal including mild tremors, diaphoresis, tachycardia and his reports of anxiety. Patient does report improvement of symptoms and stating Ativan is helping to control. Librium discontinued secondary to availability and patient placed on scheduled Valium 10 mg twice daily for replacement along with continuation of CIWA protocol. Patient denies having any headache, lightheadedness, dizziness, chest pain, palpitations, shortness of breath, abdominal pain, nausea, vomiting, or experiencing any numbness/tingling/weakness in his extremities. Patient continues to deny having any tactile, auditory, or visual hallucinations. Echocardiogram was completed revealing a preserved EF of 60-65% with no significant valvular abnormalities. Physical exam: Vital signs reviewed and stable. General: Nontoxic, patient appears in mild distress secondary to physical signs of withdrawal including diaphoresis and tremors. Derm: Skin diaphoretic, warm, and normal coloration. Head: Atraumatic, normocephalic and symmetric. Eyes: EOMs intact, no lid lag, and anicteric sclera Mouth: no lip lesions, mucus membranes moist Cardiovascular: Tachycardic rate with regular rhythm with normal S1S2, no murmur, positive posterior tibial pulses bilaterally, and cap refill < 2 seconds. Lungs: Respirations even, regular, and unlabored on room air. Lungs CTA bilaterally, no rhonchi, no rales, no wheezing, and no accessory muscle usage. Abdominal: soft, nontender to palpation, no guarding, no appreciable organomegaly Ext: ROM intact. No gross muscle atrophy, no edema, no contractures Neuro: Speech clear, face symmetrical and CN II-XII grossly intact with no noted focal neuro deficits. Mild tremors noted. Psych: Alert and oriented to person, place, time, and situation. Appropriate and pleasant affect. Patient denies visual, tactile, or auditory hallucinations. Assessment and Plan of Care: Atypical chest pain, acute coronary event ruled out -Troponins 0.013, 0.014, and 0.017 -EKG showing sinus tachycardia at 102 bpm with no noted T-wave or ST abnormalities. -Cardiology consulted, recommending dobutamine stress echocardiogram to assess for stress-induced ischemia or possible inducing arrhythmia -Telemetry monitoring -Continue daily aspirin, atorvastatin, metoprolol. -Echocardiogram revealing a preserved EF 60-65% with no significant valvular abnormalities Acute Alcohol withdrawal Syncopal episode, possible alcohol withdrawal seizure -Serum alcohol 29 -Telemetry monitoring -[facility] protocol with symptom triggered medication management -Consult to social work for assistance with possible rehabilitation placement upon discharge versus providing patient with outpatient resources available to him. Seizure precautions, fall precautions, and aspiration precautions in place. Daily thiamine Hypomagnesemia Replaced We will continue to monitor with repeat a.m. labs and replace abnormal electrol yte abnormalities as needed. Hyperkalemia Replaced We will continue to monitor with repeat a.m. labs and replace electrolyte abnormalities as needed. Hypertension Monitor vital signs and continue daily medication regimen with amlodipine, lisinopril, and metoprolol. Hyperlipidemia Continue daily medication regimen with atorvastatin 20 mg nightly. The patient is admitted with an anticipated greater than 2 midnight stay for evaluation of atypical chest pain and acute alcohol withdrawal CODE STATUS: Full code DVT prophylaxis: Heparin Discussed with: Patient and RN Anticipated discharge date: Clinical course to determine Anticipated discharge place: Home versus inpatient drug and alcohol rehabilitation Center A total of 45 minutes was spent on the care of this complex patient more than 50% of the time was spent in counseling and care coordination. Objective - Vital Signs Vital signs: Vital Signs Temp 98.5 F 02/03/21 08:25 Pulse 90 02/03/21 08:25 Resp 18 02/03/21 08:25 BP 134/89 02/03/21 08:25 Pulse Ox 95 02/03/21 08:25 Intake & Output 02/02/21 02/03/21 02/03/21 18:59 06:59 18:59 Intake Total 340 236 Balance 340 236 Weight 104.326 kg 102.5 kg Intake: Intake, IV Titration 100 Amount Magnesium Sulfate-D5w Pmx 100 1 gm In Dextrose/Water 1 100ml.bag @ 100 mls/hr IVPB Q1H [facility] Rx#: [id number] Oral 240 236 Other: Voiding Method Toilet Urinal # Voids 2 - Labs CBC & Chem 7: 02/03/21 09:15 02/03/21 09:15 Labs: Abnormal Lab Results - Last 24 Hours (Table) 02/02/21 Range/Units 08:13 D-Dimer 1.90 H (<0.60) mg/L FEU <Jennifer Vanegas - Last Filed: 02/03/21 20:23> Subjective Patient seen and examined independently. Patient was also seen by Edenilson Guzmán NP and case was discussed. I am in agreement with subjective, physical exam, assessment and plan as written above and amended below. Patient reports his alcohol withdrawal was better this morning, then got worse during the afternoon and is now better again after Ativan. He still having a slight headache, some nausea, some tremulousness, and some diaphoresis. General: non toxic, no distress, appears at stated age Derm: warm, dry, no diaphoresis Head: atraumatic, normocephalic, symmetric Eyes: EOMI, no lid lag, anicteric sclera Mouth: no lip lesion, mucus membranes moist Cardiovascular: S1S2 reg, no murmur, positive posterior tibial pulse bilateral, Lungs: CTA bilateral, no rhonchi, no rales , no accessory muscle use Neuro: CN II-XI grossly intact, no focal neuro deficits, slight resting tremor noted Psych: Alert, oriented, appropriate affect Objective - Vital Signs Vital signs: Vital Signs Temp 98.0 F 02/03/21 15:48 Pulse 73 02/03/21 15:48 Resp 16 02/03/21 15:48 BP 128/84 02/03/21 15:48 Pulse Ox 93 L 02/03/21 15:48 Intake & Output 02/03/21 02/03/21 02/04/21 06:59 18:59 06:59 Intake Total 340 596 Balance 340 596 Weight 102.5 kg Intake: Intake, IV Titration 100 Amount Magnesium Sulfate-D5w Pmx 100 1 gm In Dextrose/Water 1 100ml.bag @ 100 mls/hr IVPB Q1H [facility] Rx#: [id number] Oral 240 596 Other: Voiding Method Toilet Toilet Urinal Urinal # Voids 2 2 # Bowel Movements 2 - Labs CBC & Chem 7: 02/03/21 09:15 02/03/21 09:15 Labs: Abnormal Lab Results - Last 24 Hours (Table) 02/03/21 02/03/21 Range/Units 09:15 09:15 RBC 4.11 L (4.30-5.90) m/uL MCV 100.7 H (80.0-100.0) fL Sodium 134 L (137-145) mmol/L Potassium 3.4 L (3.5-5.1) mmol/L Glucose 166 H (74-99) mg/dL AST 157 H (17-59) U/L ALT 88 H (4-49) U/L Total Protein 6.0 L (6.3-8.2) g/dL Albumin 3.4 L (3.5-5.0) g/dL
[2021-02-03] MEDS: MAGNESIUM SULFATE-D5W PMX 1 GM in DEXTROSE/WATER 1 100ML.BAG IVPB SCH ×2 (17:15→19:09)
[2021-02-03] MEDS: THIAMINE 100 MG TAB PO SCH (17:16)
[2021-02-03 18:23] LABS: Cholesterol 127 mg/dL (0-200); LDL Cholesterol,Calculated 53.6 mg/dL (0.0-131.0)
[2021-02-03] MEDS: diazePAM 5 MG TAB PO SCH (19:09)
[2021-02-03] MEDS ORDERED: diazePAM 5 MG TAB PO SCH (21:00)
[2021-02-03] MEDS: traZODone HCL 100 MG TAB PO SCH (21:34)
[2021-02-04] MEDS: HEPARIN SODIUM,PORCINE/PF 5,000 UNIT/0.5 ML SYRINGE SQ SCH ×4 (02:33→22:14)
[2021-02-04] MEDS: HYDROcodone/APAP 7.5-325MG 1 EACH TAB PO PRN ×2 (07:49→16:03)
[2021-02-04] MEDS: diazePAM 5 MG TAB PO SCH ×2 (07:50→23:09)
[2021-02-04] MEDS: THIAMINE 100 MG TAB PO SCH (07:51)
[2021-02-04] MEDS: MAGNESIUM OXIDE 400 MG TAB PO SCH (07:51)
[2021-02-04] MEDS: PARoxetine 10 MG TAB PO SCH ×2 (07:51→21:58)
[2021-02-04] MEDS: ASPIRIN 81 MG PO SCH (07:51)
[2021-02-04] MEDS: METOPROLOL TARTRATE 25 MG TAB PO SCH ×2 (07:51→21:14)
[2021-02-04] MEDS: lisinopriL 20 MG TAB PO SCH (07:51)
[2021-02-04] MEDS: amLODIPine 10 MG TAB PO SCH (07:52)
[2021-02-04] MEDS: ATORVASTATIN 20 MG TAB PO SCH (07:52)
[2021-02-04] MEDS: PANTOPRAZOLE 40 MG/10 ML VIAL IVP SCH (07:52)
[2021-02-04] MEDS ORDERED: diazePAM 5 MG TAB PO SCH (09:00)
[2021-02-04] MEDS ORDERED: ERGOCALCIFEROL 1,250 MCG (50,000 IU) CAPSULE PO SCH (09:00)
[2021-02-04 10:17] LABS: African American GFR (CKD) >90 (>60 ml/min/1.73 sqM); Anion Gap 6 mmol/L; Blood Urea Nitrogen 8 mg/dL (9-20); Calcium 8.9 mg/dL (8.4-10.2); Carbon Dioxide 27 mmol/L (22-30); Chloride 103 mmol/L (98-107); Glucose 128 mg/dL (74-99); Magnesium 1.9 mg/dL (1.6-2.3); Non-African American GFR(CKD) >90 (>60 ml/min/1.73 sqM); Potassium 4.3 mmol/L (3.5-5.1); Sodium 136 mmol/L (137-145)
[2021-02-04] MEDS: LORazepam 2 MG/ML INJ IV PRN ×4 (10:40→22:14)
--- NOTE | 2021-02-04 11:26 | P.PN ---
Subjective HISTORY OF PRESENTING ILLNESS This is a pleasant 55-year-old male past medical history significant for hypertension, dyslipidemia and alcohol abuse. 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 We have been asked to see in consultation for chest pain. He states he has been sober since November until last week. He started drinking heavily again last week. Yesterday he woke up feeling unwell. He states he felt tired, shaky and short of breath. He knew something bad was going to happen so he put his dog and is Cage and unlocked his front door. The next thing he remembers is being woke up on the floor of his kitchen. Apparently his girlfriend found him there passed out. He states he does recall feeling some chest pressure prior to passing out. He said his heart was racing extremely fast. He has had no further symptoms of chest discomfort or palpitations since arriving at the hospital. EKG on arrival reveals sinus tachycardia. Telemetry tracings reveal sinus rhythm with intermittent episodes of tachycardia all sinus in origin. Chest x-ray is negative for acute cardiopulmonary process. CTA is nondiagnostic for a large pulmonary embolism however due to significant movement artifact unable to completely rule out. Laboratory data reviewed, CBC unremarkable, d-dimer 1.9, sodium 134, potassium 3.4, creatinine 0.89, magnesium on admission 1.2 after supplementation 1.7, cardiac enzymes negative 3, lipase 472 and alcohol level XXIX. Crit daily cardiac medications include metoprolol 25 mg twice a day, aspirin 81 mg daily, atorvastatin 20 mg daily and amlodipine/benazepril 10/40 mg daily. Echocardiogram obtained this admission reveals preserved LV systolic function with ejection fraction 60-65%. 02/04/2021 Patient seen and examined sitting up in the chair in no acute distress. He denies symptoms of chest discomfort. Breathing is stable. Blood pressure 138/77 heart rate 76 afebrile maintaining oxygen saturation on room air. Laboratory data reviewed, sodium 136, potassium 4.3, creatinine 0.81 and magnesium 1.9. Telemetry tracings reveal persistent sinus mechanism. PHYSICAL EXAMINATION CONSTITUTIONAL: No apparent distress. HEENT: Head is normocephalic. Pupils are equal, round. Sclerae anicteric. Mucous membranes of the mouth are moist. No JVD. No carotid bruit. CHEST EXAMINATION: Lungs are clear to auscultation. No chest wall tenderness is noted on palpation or with deep breathing. HEART EXAMINATION: Regular rate and rhythm. S1, S2 heard. No murmurs, gallops or rub. EXTREMITIES: 2+ peripheral pulses, no lower extremity edema and no calf tenderness. ASSESSMENT Chest pain Syncope Alcohol abuse Possible alcohol withdrawal Hypertension Dyslipidemia Hypomagnesemia PLAN Proceed with stress test as previously ordered. If stress test is normal he may be discharged from a cardiac perspective. If abnormal we will consider coronary angiography. Further outpatient arrhythmia evaluation per Dr. Rajput. Follow up upon discharge with Dr. Rajput. Nurse Practitioner note has been reviewed, I agree with a documented findings and plan of care. Patient was seen and examined. Objective - Vital Signs Vital signs: Vital Signs Temp 98 F 02/04/21 07:27 Pulse 76 02/04/21 11:07 Resp 16 02/04/21 11:07 BP 138/77 02/04/21 11:07 Pulse Ox 95 02/04/21 11:07 Intake & Output 02/03/21 02/04/21 02/04/21 18:59 06:59 18:59 Intake Total 596 Balance 596 Weight 105.5 kg Intake: Oral 596 Other: Voiding Method Toilet Toilet Toilet Urinal Urinal Urinal # Voids 2 # Bowel Movements 2 - Labs CBC & Chem 7: 02/03/21 09:15 02/04/21 08:52 Labs: Abnormal Lab Results - Last 24 Hours (Table) 02/04/21 Range/Units 08:52 Sodium 136 L (137-145) mmol/L BUN 8 L (9-20) mg/dL Glucose 128 H (74-99) mg/dL
--- NOTE | 2021-02-04 13:23 | P.PN ---
<Edenilson Guzmán - Last Filed: 02/04/21 13:16> Subjective Progress Note Date: 02/04/21 History of Presenting Illness: Patient is a 55-year-old male with a past medical history of hypertension, hyperlipidemia, and EtOH use/abuse reportedly drinking 1 quart or more of whiskey daily. Patient presented to the emergency department today with a chief complaint of chest pain accompanied by nausea, vomiting, diaphoresis, and tremors. Patient was reportedly found on the ground by family after unknown down time. Patient reports last time drinking was yesterday morning and he is actively withdrawing. Patient reports last time withdrawing from alcohol was approximately 9 years ago and reports daily drinking since. He reports he used to drink approximately 1 pint a day but states over the last year this has significantly increased and he is drinking a minimum of a quart of whiskey daily. Patient denies history of withdrawal seizures but does state that he starts "withdrawing bad" if he goes too long without alcohol. Patient denies having headache, lightheadedness, dizziness, changes in his vision or hearing, palpitations, shortness of breath, abdominal pain, nausea, or experiencing any numbness/tingling/weakness in his extremities. Patient reports chest pain has resided. Patient was seen and fully evaluated in the emergency department. CBC unremarkable. BMP unremarkable. Hypomagnesemia with magnesium of 1.2, replaced. Liver enzymes elevated with AST of 146 and ALP of 95. Lipase also slightly elevated at 472. Serum alcohol level 29. D-dimer slightly elevated at 1.98. CT PE negative for acute central large pulmonary emboli or definite lobar branch emboli, however did reveal an aortic aneurysm of the ascending aorta measuring 4.4 cm unchanged from previous examination, and hepatic steatosis. Chest x-ray negative for acute cardiopulmonary process. EKG showing sinus tachycardia at 102 bpm with no noted T-wave or ST abnormalities. Patient admitted under our services for atypical chest pain along with acute alcohol withdrawal. Cardiology consulted. 02/03/21: Patient seen and fully evaluated at the bedside this morning. He received a total of 8 mg of Ativan and 30 mg of Librium over the past 12 hours. Patient continues with obvious signs and symptoms of withdrawal including mild tremors, diaphoresis, tachycardia and his reports of anxiety. Patient does report improvement of symptoms and stating Ativan is helping to control. Librium discontinued secondary to availability and patient placed on scheduled Valium 10 mg twice daily for replacement along with continuation of CIWA protocol. Patient denies having any headache, lightheadedness, dizziness, chest pain, palpitations, shortness of breath, abdominal pain, nausea, vomiting, or experiencing any numbness/tingling/weakness in his extremities. Patient continues to deny having any tactile, auditory, or visual hallucinations. Echocardiogram was completed revealing a preserved EF of 60-65% with no significant valvular abnormalities. 02/04/21: Patient again seen and fully evaluated at bedside this morning. He was sitting up on the edge of bed and appeared to be doing quite well this morning. Patient no longer had any tremors noted. Skin was warm and dry. Patient received a total of 2 mg of Ativan throughout the evening and night. Patient was on 10 mg a scheduled Valium twice daily and this morning secondary to significant improvement we will decrease to 7.5 mg twice daily and attempt to wean off. Had long discussion with patient regarding importance of alcohol cessation and risks of continued use up to and including . Patient states that he would like to quit and requesting assistance because he states he is fearful secondary to his "extreme anxiety". Patient continues to deny having any headache, lightheadedness, dizziness, chest pain, palpitations, shortness of breath, or experiencing any numbness/tingling/weakness in his extremities. Social work on consult and to discuss with patient potential for inpatient drug and alcohol rehab versus outpatient resources available to him. Vital signs and laboratory values are within normal limits this morning. Physical exam: Vital signs reviewed and stable. General: Nontoxic, patient appears in mild distress secondary to physical signs of withdrawal including diaphoresis and tremors. Derm: Skin diaphoretic, warm, and normal coloration. Head: Atraumatic, normocephalic and symmetric. Eyes: EOMs intact, no lid lag, and anicteric sclera Mouth: no lip lesions, mucus membranes moist Cardiovascular: Tachycardic rate with regular rhythm with normal S1S2, no murmur, positive posterior tibial pulses bilaterally, and cap refill < 2 seconds. Lungs: Respirations even, regular, and unlabored on room air. Lungs CTA bilaterally, no rhonchi, no rales, no wheezing, and no accessory muscle usage. Abdominal: soft, nontender to palpation, no guarding, no appreciable organomegaly Ext: ROM intact. No gross muscle atrophy, no edema, no contractures Neuro: Speech clear, face symmetrical and CN II-XII grossly intact with no noted focal neuro deficits. Mild tremors noted. Psych: Alert and oriented to person, place, time, and situation. Appropriate and pleasant affect. Patient denies visual, tactile, or auditory hallucinations. Assessment and Plan of Care: Atypical chest pain, acute coronary event ruled out -Troponins 0.013, 0.014, and 0.017 -EKG showing sinus tachycardia at 102 bpm with no noted T-wave or ST abnorm alities. -Cardiology consulted, recommending dobutamine stress echocardiogram to assess for stress-induced ischemia or possible inducing arrhythmia -Telemetry monitoring -Continue daily aspirin, atorvastatin, metoprolol. -Echocardiogram revealing a preserved EF 60-65% with no significant valvular ab normalities Acute Alcohol withdrawal Syncopal episode, possible alcohol withdrawal seizure -Serum alcohol 29 upon arrival -Telemetry monitoring -[facility] protocol with symptom triggered medication management -Consult to social work for assistance with possible rehabilitation placement upon discharge versus providing patient with outpatient resources available to him. Seizure precautions, fall precautions, and aspiration precautions in place. Daily thiamine Scheduled Valium decreased to 7.5 mg twice daily. Hypomagnesemia Replaced. We will continue to monitor with repeat a.m. labs and replace abnormal electro lyte abnormalities as needed. Hyperkalemia Replaced We will continue to monitor with repeat a.m. labs and replace electrolyte abnormalities as needed. Hypertension Monitor vital signs and continue daily medication regimen with amlodipine, lisinopril, and metoprolol. Hyperlipidemia Continue daily medication regimen with atorvastatin 20 mg nightly. The patient is admitted with an anticipated greater than 2 midnight stay for evaluation of atypical chest pain and acute alcohol withdrawal CODE STATUS: Full code DVT prophylaxis: Heparin Discussed with: Patient and RN Anticipated discharge date: Clinical course to determine, if patient continues to improve likely discharge tomorrow. Anticipated discharge place: Home versus inpatient drug and alcohol rehabilitation Center A total of 45 minutes was spent on the care of this complex patient more than 50% of the time was spent in counseling and care coordination. Objective - Vital Signs Vital signs: Vital Signs Temp 98 F 02/04/21 07:27 Pulse 77 02/04/21 08:00 Resp 16 02/04/21 08:00 BP 140/88 02/04/21 07:27 Pulse Ox 95 02/04/21 07:27 Intake & Output 02/03/21 02/04/21 02/04/21 18:59 06:59 18:59 Intake Total 596 Balance 596 Weight 105.5 kg Intake: Oral 596 Other: Voiding Method Toilet Toilet Toilet Urinal Urinal Urinal # Voids 2 # Bowel Movements 2 - Labs CBC & Chem 7: 02/03/21 09:15 02/04/21 08:52 Labs: Abnormal Lab Results - Last 24 Hours (Table) 02/03/21 02/03/21 Range/Units 09:15 09:15 RBC 4.11 L (4.30-5.90) m/uL MCV 100.7 H (80.0-100.0) fL Sodium 134 L (137-145) mmol/L Potassium 3.4 L (3.5-5.1) mmol/L Glucose 166 H (74-99) mg/dL AST 157 H (17-59) U/L ALT 88 H (4-49) U/L Total Protein 6.0 L (6.3-8.2) g/dL Albumin 3.4 L (3.5-5.0) g/dL <Jennifer Vanegas - Last Filed: 02/04/21 18:50> Subjective Patient seen and examined independently. Patient was also seen by Edenilson Guzmán NP and case was discussed. I am in agreement with subjective, physical exam, assessment and plan as written above and amended below. He is feeling somewhat less anxious than earlier. Having a slight headache, no nausea, not having any really exert things crawling on his arms, no hallucinations. He was adverse to inpatient rehab and failure to this episode. We had a long discussion stating that he would benefit from rehabilitation and detox support. General: Nontoxic, no distress, appears at stated age Derm: warm, dry, no diaphoresis Head: atraumatic, normocephalic, symmetric Eyes: EOMI, no lid lag, anicteric sclera Mouth: no lip lesion, mucus membranes moist Cardiovascular: S1S2 reg, no murmur, positive posterior tibial pulse bilateral, Lungs: CTA bilateral, no rhonchi, no rales , no accessory muscle use Abdominal: soft, nontender to palpation, no guarding, no appreciable organomegaly Ext: no gross muscle atrophy, no edema, no contractures Neuro: CN II-XI grossly intact, no focal neuro deficits, mild resting tremor Psych: Alert, oriented, appears anxious Objective - Vital Signs Vital signs: Vital Signs Temp 97.8 F 02/04/21 14:26 Pulse 79 02/04/21 14:26 Resp 17 02/04/21 14:26 BP 129/67 02/04/21 14:26 Pulse Ox 98 02/04/21 14:26 Intake & Output 02/03/21 02/04/21 02/04/21 18:59 06:59 18:59 Intake Total 596 238 Balance 596 238 Weight 105.5 kg 105.5 kg Intake: Oral 596 238 Other: Voiding Method Toilet Toilet Toilet Urinal Urinal Urinal # Voids 2 2 # Bowel Movements 2 - Labs CBC & Chem 7: 02/03/21 09:15 02/04/21 08:52 Labs: Abnormal Lab Results - Last 24 Hours (Table) 02/04/21 Range/Units 08:52 Sodium 136 L (137-145) mmol/L BUN 8 L (9-20) mg/dL Glucose 128 H (74-99) mg/dL
[2021-02-04] MEDS: traZODone HCL 100 MG TAB PO SCH (21:14)
[2021-02-05] MEDS: HYDROcodone/APAP 7.5-325MG 1 EACH TAB PO PRN ×3 (06:53→21:54)
[2021-02-05 08:52] LABS: HCT 40.9 % (39.0-53.0); HGB 13.6 gm/dL (13.0-17.5); MCH 33.7 pg (25.0-35.0); MCHC 33.3 g/dL (31.0-37.0); MCV 101.1 fL (80.0-100.0); Mean Platelet Volume 9.1; Platelet Count 143 k/uL (150-450); RBC 4.05 m/uL (4.30-5.90); RDW 12.5 % (11.5-15.5); WBC 4.1 k/uL (3.8-10.6)
[2021-02-05 08:53] LABS: African American GFR (CKD) >90 (>60 ml/min/1.73 sqM); Anion Gap 4 mmol/L; Blood Urea Nitrogen 10 mg/dL (9-20); Calcium 9.3 mg/dL (8.4-10.2); Carbon Dioxide 28 mmol/L (22-30); Chloride 105 mmol/L (98-107); Glucose 124 mg/dL (74-99); Magnesium 1.6 mg/dL (1.6-2.3); Non-African American GFR(CKD) >90 (>60 ml/min/1.73 sqM); Potassium 4.2 mmol/L (3.5-5.1); Sodium 137 mmol/L (137-145)
--- NOTE | 2021-02-05 09:08 | P.STRESS ---
- Stress Test Note Stress Test Results/Findings: Exam Performed: dobutamine stress echo Exam Date: 02/04/21 Reason for Exam: Chest Pain Height: 6 ft Weight: 107.3 kg Protocol: Dobutamine Stage: 40 Duration of Exercise: 9:19 Resting Heart Rate: 62 Resting Blood Pressure: 129/92 Maximum Achieved Heart Rate: 139 Maximum Achieved Blood Pressure: 166/95 85% PMHR: 139 100% PMHR: 163 METS: na Technologist Comment: Stress Test Results/Findings: His is a 55-year-old gentleman with history of hypertension, hypercholesteremia, and smoking history, being evaluated for symptoms of chest pain and shortness of breath. Stress data: Baseline EKG showed sinus rhythm with normal DE and QRS duration. Blood pressure at rest is 120 02/17/1984 with pulse rate of 62. Patient walked on the Romaine protocol for 9 minutes 19 seconds achieving a maximal heart rate of 139 with a blood pressure 166/95. EKGs taken during and after exercise did not reveal any changes of ischemia. Patient did not experience any chest pain. No arrhythmias are noted. Echo data: Baseline echo images show normal wall motion and thickening. Exercise echo images showed augmentation of wall motion and thickening in all the segments. Final impression: #1. Negative stress test #2. Negative stress echo.
[2021-02-05] MEDS: THIAMINE 100 MG TAB PO SCH (09:44)
[2021-02-05] MEDS: MAGNESIUM OXIDE 400 MG TAB PO SCH (09:44)
[2021-02-05] MEDS: METOPROLOL TARTRATE 25 MG TAB PO SCH ×2 (09:44→21:54)
[2021-02-05] MEDS: HEPARIN SODIUM,PORCINE/PF 5,000 UNIT/0.5 ML SYRINGE SQ SCH ×3 (09:44→21:59)
[2021-02-05] MEDS: PARoxetine 10 MG TAB PO SCH (09:44)
[2021-02-05] MEDS: lisinopriL 20 MG TAB PO SCH (09:44)
[2021-02-05] MEDS: ASPIRIN 81 MG PO SCH (09:44)
[2021-02-05] MEDS: PANTOPRAZOLE 40 MG/10 ML VIAL IVP SCH (09:45)
[2021-02-05] MEDS: amLODIPine 10 MG TAB PO SCH (09:45)
[2021-02-05] MEDS: ATORVASTATIN 20 MG TAB PO SCH (09:45)
[2021-02-05] MEDS: diazePAM 5 MG TAB PO SCH ×2 (09:45→21:57)
[2021-02-05 11:39] LABS: Glucose,Whole Blood 94 mg/dL (75-99)
[2021-02-05] MEDS: LORazepam 2 MG/ML INJ IV PRN ×3 (11:47→20:05)
--- NOTE | 2021-02-05 15:08 | P.PN ---
<Edenilson Guzmán - Last Filed: 02/05/21 15:02> Subjective Progress Note Date: 02/05/21 History of Presenting Illness: Patient is a 55-year-old male with a past medical history of hypertension, hyperlipidemia, and EtOH use/abuse reportedly drinking 1 quart or more of whiskey daily. Patient presented to the emergency department today with a chief complaint of chest pain accompanied by nausea, vomiting, diaphoresis, and tremors. Patient was reportedly found on the ground by family after unknown down time. Patient reports last time drinking was yesterday morning and he is actively withdrawing. Patient reports last time withdrawing from alcohol was approximately 9 years ago and reports daily drinking since. He reports he used to drink approximately 1 pint a day but states over the last year this has significantly increased and he is drinking a minimum of a quart of whiskey daily. Patient denies history of withdrawal seizures but does state that he starts "withdrawing bad" if he goes too long without alcohol. Patient denies having headache, lightheadedness, dizziness, changes in his vision or hearing, palpitations, shortness of breath, abdominal pain, nausea, or experiencing any numbness/tingling/weakness in his extremities. Patient reports chest pain has resided. Patient was seen and fully evaluated in the emergency department. CBC unremarkable. BMP unremarkable. Hypomagnesemia with magnesium of 1.2, replaced. Liver enzymes elevated with AST of 146 and ALP of 95. Lipase also slightly elevated at 472. Serum alcohol level 29. D-dimer slightly elevated at 1.98. CT PE negative for acute central large pulmonary emboli or definite lobar branch emboli, however did reveal an aortic aneurysm of the ascending aorta measuring 4.4 cm unchanged from previous examination, and hepatic steatosis. Chest x-ray negative for acute cardiopulmonary process. EKG showing sinus tachycardia at 102 bpm with no noted T-wave or ST abnormalities. Patient admitted under our services for atypical chest pain along with acute alcohol withdrawal. Cardiology consulted. 02/03/21: Patient seen and fully evaluated at the bedside this morning. He received a total of 8 mg of Ativan and 30 mg of Librium over the past 12 hours. Patient continues with obvious signs and symptoms of withdrawal including mild tremors, diaphoresis, tachycardia and his reports of anxiety. Patient does report improvement of symptoms and stating Ativan is helping to control. Librium discontinued secondary to availability and patient placed on scheduled Valium 10 mg twice daily for replacement along with continuation of CIWA protocol. Patient denies having any headache, lightheadedness, dizziness, chest pain, palpitations, shortness of breath, abdominal pain, nausea, vomiting, or experiencing any numbness/tingling/weakness in his extremities. Patient continues to deny having any tactile, auditory, or visual hallucinations. Echocardiogram was completed revealing a preserved EF of 60-65% with no significant valvular abnormalities. 02/04/21: Patient again seen and fully evaluated at bedside this morning. He was sitting up on the edge of bed and appeared to be doing quite well this morning. Patient no longer had any tremors noted. Skin was warm and dry. Patient received a total of 2 mg of Ativan throughout the evening and night. Patient was on 10 mg a scheduled Valium twice daily and this morning secondary to significant improvement we will decrease to 7.5 mg twice daily and attempt to wean off. Had long discussion with patient regarding importance of alcohol cessation and risks of continued use up to and including . Patient states that he would like to quit and requesting assistance because he states he is fearful secondary to his "extreme anxiety". Patient continues to deny having any headache, lightheadedness, dizziness, chest pain, palpitations, shortness of breath, or experiencing any numbness/tingling/weakness in his extremities. Social work on consult and to discuss with patient potential for inpatient drug and alcohol rehab versus outpatient resources available to him. Vital signs and laboratory values are within normal limits this morning. 02/05/21: Patient seen and evaluated bedside this morning. He was sitting up in chair and states that he is feeling a little bit better this morning. Patient states that he just had a shower. He continues to have mild signs of withdrawal including reports of anxiety and occasional tremors. Patient remains on scheduled Valium 7.5 mg twice daily and has received a total of 4 mg of Ativan over the past 24 hours. Had another discussion with patient regarding recommendations for inpatient drug and alcohol rehabilitation upon discharge [facility], patient declining. He reports he wants to attempt by himself at home first. Patient states he will seek further assistance if he feels himself getting weak. We will continue to wean down Valium and patient to receive 5 mg twice a day and we will monitor how patient tolerates and for further signs/symptoms of withdrawal. Daily labs reveal hypomagnesemia with magnesium of 1.6, orders placed for replacement with magnesium 3 g IVPB. Patient continues to deny having any headache, lightheadedness, dizziness, chest pain, palpitations, shortness of breath, or experiencing any numbne ss/tingling/weakness in his extremities. Physical exam: Vital signs reviewed and stable. General: Nontoxic, patient appears in mild distress secondary to physical signs of withdrawal including diaphoresis and tremors. Derm: Skin diaphoretic, warm, and normal coloration. Head: Atraumatic, normocephalic and symmetric. Eyes: EOMs intact, no lid lag, and anicteric sclera Mouth: no lip lesions, mucus membranes moist Cardiovascular: Tachycardic rate with regular rhythm with normal S1S2, no murmur, positive posterior tibial pulses bilaterally, and cap refill < 2 seconds. Lungs: Respirations even, regular, and unlabored on room air. Lungs CTA bilaterally, no rhonchi, no rales, no wheezing, and no accessory muscle usage. Abdominal: soft, nontender to palpation, no guarding, no appreciable organomegaly Ext: ROM intact. No gross muscle atrophy, no edema, no contractures Neuro: Speech clear, face symmetrical and CN II-XII grossly intact with no noted focal neuro deficits. Mild tremors noted. Psych: Alert and oriented to person, place, time, and situation. Appropriate and pleasant affect. Patient denies visual, tactile, or auditory hallucinations. Assessment and Plan of Care: Atypical chest pain, acute coronary event ruled out -Troponins 0.013, 0.014, and 0.017 -EKG showing sinus tachycardia at 102 bpm with no noted T-wave or ST abnormalities. -Cardiology consulted, recommending dobutamine stress echocardiogram to assess for stress-induced ischemia or possible inducing arrhythmia -Telemetry monitoring -Continue daily aspirin, atorvastatin, metoprolol. -Echocardiogram revealing a preserved EF 60-65% with no significant valvular abnormalities Acute Alcohol withdrawal Syncopal episode, possible alcohol withdrawal seizure -Serum alcohol 29 upon arrival -Telemetry monitoring -[facility] protocol with symptom triggered medication management -Consult to social work for assistance with possible rehabilitation placement upon discharge versus providing patient with outpatient resources available to him. Seizure precautions, fall precautions, and aspiration precautions in place. Daily thiamine Scheduled Valium decreased to 7.5 mg twice daily. Hypomagnesemia Replaced. We will continue to monitor with repeat a.m. labs and replace abnormal electrolyte abnormalities as needed. Hypokalemia, resolved We will continue to monitor with repeat a.m. labs and replace electrolyte abnormalities as needed. Hypertension Monitor vital signs and continue daily medication regimen with amlodipine, lisinopril, and metoprolol. Hyperlipidemia Continue daily medication regimen with atorvastatin 20 mg nightly. The patient is admitted with an anticipated greater than 2 midnight stay for evaluation of atypical chest pain and acute alcohol withdrawal CODE STATUS: Full code DVT prophylaxis: Heparin Discussed with: Patient and RN Anticipated discharge date: Clinical course to determine, if patient continues to improve likely discharge tomorrow. Anticipated discharge place: Home A total of 45 minutes was spent on the care of this complex patient more than 50% of the time was spent in counseling and care coordination. Objective - Vital Signs Vital signs: Vital Signs Temp 97.7 F 02/05/21 09:34 Pulse 62 02/05/21 09:34 Resp 18 02/05/21 09:34 BP 128/84 02/05/21 09:34 Pulse Ox 95 02/05/21 09:34 Intake & Output 02/04/21 02/05/21 02/05/21 18:59 06:59 18:59 Intake Total 238 180 Balance 238 180 Weight 105.5 kg 107.3 kg Intake: Oral 238 180 Other: Voiding Method Toilet Urinal # Voids 2 0 - Labs CBC & Chem 7: 02/05/21 07:46 02/05/21 07:46 Labs: Abnormal Lab Results - Last 24 Hours (Table) 02/05/21 02/05/21 Range/Units 07:46 07:46 RBC 4.05 L (4.30-5.90) m/uL MCV 101.1 H (80.0-100.0) fL Plt Count 143 L (150-450) k/uL Glucose 124 H (74-99) mg/dL <Jennifer Vanegas - Last Filed: 02/05/21 19:03> Subjective Edenilson Guzmán NP rendered care for this patient independently, reviewed the findings and plan as documented in the note above. I did not physically speak with or examine the patient on this date. Objective - Vital Signs Vital signs: Vital Signs Temp 97.7 F 02/05/21 09:34 Pulse 53 L 02/05/21 16:00 Resp 16 02/05/21 16:00 BP 148/97 02/05/21 16:00 Pulse Ox 96 02/05/21 16:00 Intake & Output 02/05/21 02/05/21 02/06/21 06:59 18:59 06:59 Intake Total 660 Balance 660 Weight 107.3 kg Intake: Oral 660 Other: # Voids 0 2 - Labs CBC & Chem 7: 02/05/21 07:46 02/05/21 07:46 Labs: Abnormal Lab Results - Last 24 Hours (Table) 02/05/21 02/05/21 02/05/21 Range/Units 07:46 07:46 16:40 RBC 4.05 L (4.30-5.90) m/uL MCV 101.1 H (80.0-100.0) fL Plt Count 143 L (150-450) k/uL Glucose 124 H (74-99) mg/dL POC Glucose (mg/dL) 119 H (75-99) mg/dL
[2021-02-05] MEDS: MAGNESIUM SULFATE-D5W PMX 1 GM in DEXTROSE/WATER 1 100ML.BAG IVPB SCH ×3 (15:44→20:08)
[2021-02-05 16:41] LABS: Glucose,Whole Blood 119 mg/dL (75-99)
[2021-02-05] MEDS: traZODone HCL 100 MG TAB PO SCH (21:55)
[2021-02-06] MEDS: LORazepam 2 MG/ML INJ IV PRN ×4 (03:16→21:29)
[2021-02-06] MEDS: PARoxetine 10 MG TAB PO SCH ×3 (05:44→20:07)
[2021-02-06] MEDS: HYDROcodone/APAP 7.5-325MG 1 EACH TAB PO PRN ×3 (08:22→21:28)
[2021-02-06] MEDS: MAGNESIUM OXIDE 400 MG TAB PO SCH (08:22)
[2021-02-06] MEDS: lisinopriL 20 MG TAB PO SCH (08:22)
[2021-02-06] MEDS: ATORVASTATIN 20 MG TAB PO SCH (08:23)
[2021-02-06] MEDS: HEPARIN SODIUM,PORCINE/PF 5,000 UNIT/0.5 ML SYRINGE SQ SCH ×2 (08:23→16:42)
[2021-02-06] MEDS: PANTOPRAZOLE 40 MG/10 ML VIAL IVP SCH (08:23)
[2021-02-06] MEDS: ASPIRIN 81 MG PO SCH (08:23)
[2021-02-06] MEDS: THIAMINE 100 MG TAB PO SCH (08:23)
[2021-02-06] MEDS: METOPROLOL TARTRATE 25 MG TAB PO SCH ×2 (08:23→20:07)
[2021-02-06] MEDS: diazePAM 5 MG TAB PO SCH ×2 (08:23→20:13)
[2021-02-06] MEDS: amLODIPine 10 MG TAB PO SCH (08:23)
[2021-02-06 11:51] LABS: HCT 42.6 % (39.0-53.0); HGB 14.5 gm/dL (13.0-17.5); MCH 34.6 pg (25.0-35.0); MCV 101.5 fL (80.0-100.0); Mean Platelet Volume 8.8; Platelet Count 161 k/uL (150-450); RBC 4.19 m/uL (4.30-5.90); RDW 12.9 % (11.5-15.5); WBC 5.5 k/uL (3.8-10.6)
[2021-02-06 12:09] LABS: African American GFR (CKD) >90 (>60 ml/min/1.73 sqM); Anion Gap 7 mmol/L; Blood Urea Nitrogen 13 mg/dL (9-20); Carbon Dioxide 25 mmol/L (22-30); Chloride 104 mmol/L (98-107); Glucose 174 mg/dL (74-99); Magnesium 1.7 mg/dL (1.6-2.3); Non-African American GFR(CKD) >90 (>60 ml/min/1.73 sqM); Potassium 4.7 mmol/L (3.5-5.1); Sodium 136 mmol/L (137-145)
--- NOTE | 2021-02-06 12:10 | P.PN ---
<Edenilson Guzmán - Last Filed: 02/06/21 11:51> Subjective Progress Note Date: 02/06/21 History of Presenting Illness: Patient is a 55-year-old male with a past medical history of hypertension, hyperlipidemia, and EtOH use/abuse reportedly drinking 1 quart or more of whiskey daily. Patient presented to the emergency department today with a chief complaint of chest pain accompanied by nausea, vomiting, diaphoresis, and tremors. Patient was reportedly found on the ground by family after unknown down time. Patient reports last time drinking was yesterday morning and he is actively withdrawing. Patient reports last time withdrawing from alcohol was approximately 9 years ago and reports daily drinking since. He reports he used to drink approximately 1 pint a day but states over the last year this has significantly increased and he is drinking a minimum of a quart of whiskey daily. Patient denies history of withdrawal seizures but does state that he starts "withdrawing bad" if he goes too long without alcohol. Patient denies having headache, lightheadedness, dizziness, changes in his vision or hearing, palpitations, shortness of breath, abdominal pain, nausea, or experiencing any numbness/tingling/weakness in his extremities. Patient reports chest pain has resided. Patient was seen and fully evaluated in the emergency department. CBC unremarkable. BMP unremarkable. Hypomagnesemia with magnesium of 1.2, replaced. Liver enzymes elevated with AST of 146 and ALP of 95. Lipase also slightly elevated at 472. Serum alcohol level 29. D-dimer slightly elevated at 1.98. CT PE negative for acute central large pulmonary emboli or definite lobar branch emboli, however did reveal an aortic aneurysm of the ascending aorta measuring 4.4 cm unchanged from previous examination, and hepatic steatosis. Chest x-ray negative for acute cardiopulmonary process. EKG showing sinus tachycardia at 102 bpm with no noted T-wave or ST abnormalities. Patient admitted under our services for atypical chest pain along with acute alcohol withdrawal. Cardiology consulted. 02/03/21: Patient seen and fully evaluated at the bedside this morning. He received a total of 8 mg of Ativan and 30 mg of Librium over the past 12 hours. Patient continues with obvious signs and symptoms of withdrawal including mild tremors, diaphoresis, tachycardia and his reports of anxiety. Patient does report improvement of symptoms and stating Ativan is helping to control. Librium discontinued secondary to availability and patient placed on scheduled Valium 10 mg twice daily for replacement along with continuation of CIWA protocol. Patient denies having any headache, lightheadedness, dizziness, chest pain, palpitations, shortness of breath, abdominal pain, nausea, vomiting, or experiencing any numbness/tingling/weakness in his extremities. Patient continues to deny having any tactile, auditory, or visual hallucinations. Echocardiogram was completed revealing a preserved EF of 60-65% with no significant valvular abnormalities. 02/04/21: Patient again seen and fully evaluated at bedside this morning. He was sitting up on the edge of bed and appeared to be doing quite well this morning. Patient no longer had any tremors noted. Skin was warm and dry. Patient received a total of 2 mg of Ativan throughout the evening and night. Patient was on 10 mg a scheduled Valium twice daily and this morning secondary to significant improvement we will decrease to 7.5 mg twice daily and attempt to wean off. Had long discussion with patient regarding importance of alcohol cessation and risks of continued use up to and including . Patient states that he would like to quit and requesting assistance because he states he is fearful secondary to his "extreme anxiety". Patient continues to deny having any headache, lightheadedness, dizziness, chest pain, palpitations, shortness of breath, or experiencing any numbness/tingling/weakness in his extremities. Social work on consult and to discuss with patient potential for inpatient drug and alcohol rehab versus outpatient resources available to him. Vital signs and laboratory values are within normal limits this morning. 02/05/21: Patient seen and evaluated bedside this morning. He was sitting up in chair and states that he is feeling a little bit better this morning. Patient states that he just had a shower. He continues to have mild signs of withdrawal including reports of anxiety and occasional tremors. Patient remains on scheduled Valium 7.5 mg twice daily and has received a total of 4 mg of Ativan over the past 24 hours. Had another discussion with patient regarding recommendations for inpatient drug and alcohol rehabilitation upon discharge f [facility], patient declining. He reports he wants to attempt by himself at home first. Patient states he will seek further assistance if he feels himself getting weak. We will continue to wean down Valium and patient to receive 5 mg twice a day and we will monitor how patient tolerates and for further signs/symptoms of withdrawal. Daily labs reveal hypomagnesemia with magnesium of 1.6, orders placed for replacement with magnesium 3 g IVPB. Patient continues to deny having any headache, lightheadedness, dizziness, chest pain, palpitations, shortness of breath, or experiencing any numbne ss/tingling/weakness in his extremities. 02/06/21: Patient seen and fully evaluated at bedside this morning. Initially patient was resting, but upon awakening patient did have mild noted tremors in upper extremities and face as well as reports of feeling anxious. Patient's morning CIWA score was 8. She reported a total of 4 mg of Ativan over the past 24 hours in addition to scheduled Valium 5 mg by mouth twice daily. Awaiting morning labs to result. Patient denies having any further needs or complaints including headache, lightheadedness, dizziness, chest pain, palpitations, shortness of breath, or experiencing any numbness/tingling/weakness in his extremities. Dobutamine stress echo completed yesterday with negative stress test and negative stress echo. Patient cleared from cardiac standpoint. Physical exam: Vital signs reviewed and stable. General: Nontoxic, patient appears in mild distress secondary to physical signs of withdrawal including tremors. Derm: Skin warm and dry with normal coloration. Head: Atraumatic, normocephalic and symmetric. Eyes: EOMs intact, no lid lag, and anicteric sclera Mouth: no lip lesions, mucus membranes moist Cardiovascular: Regular rate and rhythm with normal S1S2, no murmur, positive posterior tibial pulses bilaterally, and cap refill < 2 seconds. Lungs: Respirations even, regular, and unlabored on room air. Lungs CTA bilaterally, no rhonchi, no rales, no wheezing, and no accessory muscle usage. Abdominal: soft, nontender to palpation, no guarding, no appreciable organomegaly Ext: ROM intact. No gross muscle atrophy, no edema, no contractures Neuro: Speech clear, face symmetrical and CN II-XII grossly intact with no noted focal neuro deficits. Mild tremors noted. Psych: Alert and oriented to person, place, time, and situation. Appropriate and pleasant affect. Patient denies visual, tactile, or auditory hallucinations. Assessment and Plan of Care: Acute Alcohol withdrawal Syncopal episode, possible alcohol withdrawal seizure -Serum alcohol 29 upon arrival -Telemetry monitoring -CIWA protocol with symptom triggered medication management -Consult to social work for assistance with possible rehabilitation placement upon discharge versus providing patient with outpatient resources available to him. Seizure precautions, fall precautions, and aspiration precautions in place. Daily thiamine Scheduled Valium decreased to 5 mg twice daily. Hypomagnesemia Replaced. We will continue to monitor with repeat a.m. labs and replace abnormal electrolyte abnormalities as needed. Hypokalemia, resolved We will continue to monitor with repeat a.m. labs and replace electrolyte ab normalities as needed. Atypical chest pain, acute coronary event ruled out, chest pain likely secondary to acute alcohol withdrawal and has resolved -Troponins 0.013, 0.014, and 0.017 -EKG showing sinus tachycardia at 102 bpm with no noted T-wave or ST abnor malities. -Cardiology was following and cleared from cardiac standpoint for discharge home. -Dobutamine stress echocardiogram was negative for stress test and negative stress echo. -Telemetry monitoring -Continue daily aspirin, atorvastatin, metoprolol. -Echocardiogram revealing a preserved EF 60-65% with no significant valvular abnormalities Hypertension Monitor vital signs and continue daily medication regimen with amlodipine, lisinopril, and metoprolol. Hyperlipidemia Continue daily medication regimen with atorvastatin 20 mg nightly. The patient is admitted with an anticipated greater than 2 midnight stay for evaluation of atypical chest pain and acute alcohol withdrawal CODE STATUS: Full code DVT prophylaxis: Heparin Discussed with: Patient and RN Anticipated discharge date: Clinical course to determine, if patient continues to show signs of withdrawal, symptoms improved patient to be discharged. Anticipated discharge place: Home A total of 45 minutes was spent on the care of this complex patient more than 50% of the time was spent in counseling and care coordination. Objective - Vital Signs Vital signs: Vital Signs Temp 97.5 F L 02/06/21 07:29 Pulse 70 02/06/21 07:29 Resp 16 02/06/21 07:29 BP 106/71 02/06/21 07:29 Pulse Ox 95 02/06/21 08:51 Intake & Output 02/05/21 02/06/21 02/06/21 18:59 06:59 18:59 Intake Total 660 Balance 660 Weight 107.9 kg Intake: Oral 660 Other: # Voids 2 3 - Labs CBC & Chem 7: 02/05/21 07:46 02/05/21 07:46 Labs: Abnormal Lab Results - Last 24 Hours (Table) 02/05/21 02/05/21 02/05/21 Range/Units 07:46 07:46 16:40 RBC 4.05 L (4.30-5.90) m/uL MCV 101.1 H (80.0-100.0) fL Plt Count 143 L (150-450) k/uL Glucose 124 H (74-99) mg/dL POC Glucose (mg/dL) 119 H (75-99) mg/dL <Jennifer Vanegas - Last Filed: 02/06/21 19:50> Subjective Edenilson Guzmán NP rendered care for this patient independently, reviewed the findings and plan as documented in the note above. I did not physically speak with or examine the patient on this date. Objective - Vital Signs Vital signs: Vital Signs Temp 97.8 F 02/06/21 16:48 Pulse 59 L 02/06/21 16:48 Resp 16 02/06/21 16:48 BP 138/86 02/06/21 16:48 Pulse Ox 95 02/06/21 16:48 Intake & Output 02/06/21 02/06/21 02/07/21 06:59 18:59 06:59 Intake Total 1280 Balance 1280 Weight 107.9 kg Intake: Oral 1280 Other: # Voids 3 2 - Labs CBC & Chem 7: 02/06/21 10:42 02/06/21 10:42 Labs: Abnormal Lab Results - Last 24 Hours (Table) 02/06/21 02/06/21 Range/Units 10:42 10:42 RBC 4.19 L (4.30-5.90) m/uL MCV 101.5 H (80.0-100.0) fL Sodium 136 L (137-145) mmol/L Glucose 174 H (74-99) mg/dL
[2021-02-06] MEDS: KETOROLAC 15 MG/ML 1 ML VIAL IVP SCH ×2 (12:30→17:24)
[2021-02-06] MEDS: traZODone HCL 100 MG TAB PO SCH (20:07)
[2021-02-06] MEDS: MAGNESIUM SULFATE-D5W PMX 1 GM in DEXTROSE/WATER 1 100ML.BAG IVPB SCH ×2 (20:13→22:01)
[2021-02-07] MEDS: HEPARIN SODIUM,PORCINE/PF 5,000 UNIT/0.5 ML SYRINGE SQ SCH ×2 (00:01→08:34)
[2021-02-07 04:25] VITALS: RESP 16
[2021-02-07] MEDS: KETOROLAC 15 MG/ML 1 ML VIAL IVP SCH ×3 (04:53→12:09)
[2021-02-07 08:31] VITALS: TEMP 98.2
[2021-02-07] MEDS: diazePAM 5 MG TAB PO SCH (08:34)
[2021-02-07] MEDS: PANTOPRAZOLE 40 MG/10 ML VIAL IVP SCH (08:34)
[2021-02-07] MEDS: ASPIRIN 81 MG PO SCH (08:35)
[2021-02-07] MEDS: MAGNESIUM OXIDE 400 MG TAB PO SCH (08:35)
[2021-02-07] MEDS: METOPROLOL TARTRATE 25 MG TAB PO SCH (08:35)
[2021-02-07] MEDS: ATORVASTATIN 20 MG TAB PO SCH (08:35)
[2021-02-07] MEDS: lisinopriL 20 MG TAB PO SCH (08:35)
[2021-02-07] MEDS: amLODIPine 10 MG TAB PO SCH (08:35)
[2021-02-07] MEDS: THIAMINE 100 MG TAB PO SCH (08:35)
[2021-02-07] MEDS: HYDROcodone/APAP 7.5-325MG 1 EACH TAB PO PRN (08:35)
[2021-02-07] MEDS: PARoxetine 10 MG TAB PO SCH (08:35)
[2021-02-07 12:09] VITALS: BP 142/95; PULSE 70
--- NOTE | 2021-02-07 12:57 | P.DS ---
<Edenilson Guzmán - Last Filed: 02/07/21 15:59> Providers Expected date of discharge: 02/07/21 Hospital Course: Discharge Diagnosis: Acute Alcohol withdrawal Syncopal episode, possible alcohol withdrawal seizure Hypomagnesemia Hypokalemia, resolved Atypical chest pain, acute coronary event ruled out, chest pain likely secondary to acute alcohol withdrawal and has resolved Hypertension Hyperlipidemia Aortic aneurysm of the ascending aorta measuring 4.4 cm unchanged from previous imaging Hospital Course: Patient is a 55-year-old male with a past medical history of hypertension, hyperlipidemia, and EtOH use/abuse reportedly drinking 1 quart or more of whiskey daily. Patient presented to the emergency department on 02/02/21 with a chief complaint of chest pain accompanied by nausea, vomiting, diaphoresis, and tremors. Patient was reportedly found on the ground by family after unknown down time. Patient reported last time drinking was yesterday morning and he is actively withdrawing. Patient reported last time withdrawing from alcohol was approximately 9 years ago and reports daily drinking since. He reports he used to drink approximately 1 pint a day but states over the last year this has significantly increased and he is drinking a minimum of a quart of whiskey daily. Patient denies history of withdrawal seizures but does state that he starts "withdrawing bad" if he goes too many hours without alcohol. Initial labs showing CBC unremarkable. BMP unremarkable. Hypomagnesemia with magnesium of 1.2. Liver enzymes elevated with AST of 146 and ALP of 95. Lipase also slightly elevated at 472. Serum alcohol level 29. D-dimer slightly elevated at 1.98. Troponin 0.013, 0.014, and 0.017. CT PE negative for acute central large pulmonary emboli or definite lobar branch emboli, however did reveal an aortic aneurysm of the ascending aorta measuring 4.4 cm unchanged from previous examination, and hepatic steatosis. Chest x-ray negative for acute cardiopulmonary process. EKG showing sinus tachycardia at 102 bpm with no noted T-wave or ST abnormalities. Patient was admitted under our services for atypical chest pain along with acute alcohol withdrawal. Cardiology consulted. Pt detoxed on [facility] protocol with symptom triggered medication management with Ativan along with scheduled valium. Echocardiogram was completed revealing a preserved EF of 60-65% with no significant valvular abnormalities. Patient was taking for Dobutamine stress echocardiogram which revealed negative stress test and negative stress echo. Acute coronary event was ruled out, patient cleared from cardiac standpoint. Over 5 day hospitalization, patient was successfully detoxed from alcohol. Patient was offered services for inpatient drug and rehabilitation Center but declined. Patient given information on outpatient resources and programs available to him. Patient did display some drug seeking behaviors and was requesting a prescription for Ativan upon discharge, patient was strongly educated on the risks associated with combining alcohol and benzodiazepines up to and including overdose and . Patient previously prescribed Librium at home which was continued upon discharge after significant education to patient on risks. Patient states he has a strong support system and that he is ready to quit drinking and will not drink again. Patient's girlfriend states she has removed all alcohol from the home. Patient stable for discharge home at this time. Physical exam: Vital signs reviewed and stable. General: Nontoxic, patient appears stated age and showing no signs of acute distress at this time. Derm: Skin warm and dry with normal coloration. Head: Atraumatic, normocephalic and symmetric. Eyes: EOMs intact, no lid lag, and anicteric sclera Mouth: no lip lesions, mucus membranes moist Cardiovascular: Regular rate and rhythm with normal S1S2, no murmur, positive posterior tibial pulses bilaterally, and cap refill < 2 seconds. Lungs: Respirations even, regular, and unlabored on room air. Lungs CTA bilaterally, no rhonchi, no rales, no wheezing, and no accessory muscle usage. Abdominal: soft, nontender to palpation, no guarding, no appreciable organomegaly Ext: ROM intact. No gross muscle atrophy, no edema, no contractures Neuro: Speech clear, face symmetrical and CN II-XII grossly intact with no noted focal neuro deficits. Psych: Alert and oriented to person, place, time, and situation. Appropriate and pleasant affect. Patient denies visual, tactile, or auditory hallucinations. A total of 45 minutes of time were spent preparing this complex discharge summary. Patient Condition at Discharge: Stable Plan - Discharge Summary Discharge Rx Participant: No New Discharge Prescriptions: New Thiamine [Vitamin B-1] 100 mg PO DAILY 30 Days #60 tab Continue HYDROcodone/APAP 7.5-325MG [[place] 7.5-325] 1 tab PO TID PRN PRN Reason: Pain Aspirin EC [Ecotrin Low Dose] 81 mg PO DAILY amLODIPine BESYLATE/BENAZEPRIL [amLODIPine BESYLATE/BENAZEPRIL 10-40 MG] 1 cap PO DAILY Magnesium 500 mg PO DAILY PARoxetine HCL [Paxil] 10 mg PO BID Testosterone Cypionate [Depo-Testosterone] 200 mg IM SA Metoprolol Tartrate [Lopressor] 25 mg PO BID Ergocalciferol (Vitamin D2) [Drisdol (50,000 Iu)] 1,250 mcg PO TH Atorvastatin [Lipitor] 20 mg PO DAILY traZODone HCL [Desyrel] 100 mg PO HS Cyclobenzaprine [Flexeril] 10 mg PO TID PRN PRN Reason: Muscle Spasm chlordiazePOXIDE HCl [Librium] 10 mg PO TID Discharge Medication List Aspirin EC [Ecotrin Low Dose] 81 mg PO DAILY 12/07/20 [History] Atorvastatin [Lipitor] 20 mg PO DAILY 12/07/20 [History] Ergocalciferol (Vitamin D2) [Drisdol (50,000 Iu)] 1,250 mcg PO TH 12/07/20 [History] HYDROcodone/APAP 7.5-325MG [[place] 7.5-325] 1 tab PO TID PRN 12/07/20 [History] Metoprolol Tartrate [Lopressor] 25 mg PO BID 12/07/20 [History] Testosterone Cypionate [Depo-Testosterone] 200 mg IM SA 12/07/20 [History] amLODIPine BESYLATE/BENAZEPRIL [amLODIPine BESYLATE/BENAZEPRIL 10-40 MG] 1 cap PO DAILY 12/07/20 [History] Cyclobenzaprine [Flexeril] 10 mg PO TID PRN 02/02/21 [History] Magnesium 500 mg PO DAILY 02/02/21 [History] PARoxetine HCL [Paxil] 10 mg PO BID 02/02/21 [History] chlordiazePOXIDE HCl [Librium] 10 mg PO TID 02/02/21 [History] traZODone HCL [Desyrel] 100 mg PO HS 02/02/21 [History] Thiamine [Vitamin B-1] 100 mg PO DAILY 30 Days #60 tab 02/07/21 [Rx] Follow up Appointment(s)/Referral(s): Abdulaziz Rajput MD [STAFF PHYSICIAN] - 1 Week (Patient to call to schedule Follow- up) Quincy Duarte MD [Primary Care Provider] - 02/09/21 9:00 am () Patient Instructions/Handouts: Abuse of Alcohol (DC), Polysubstance Abuse (ED), Alcohol Use Disorder (DC) Activity/Diet/Wound Care/Special Instructions: Diet: Continue with a heart healthy diet. Special Instructions: It was a pleasure having you for patient, I wish you the best on your journey of sobriety. As discussed, I am not sending you home with any benzodiazepines. You are currently prescribed Librium from your PCP which is a longer acting benzodiazepine than the Valium you have been receiving here. It is very important that you understand taking any benzodiazepines and drinking alcohol can lead to overdose and . Never mix benzodiazepines and alcohol together. If you feel the urge to drink, it is very important that you reach out for assistance. You have been provided with outpatient programs and assistance available to you. You will need to follow up with your primary care doctor, Dr. Duarte in 1-2 days and with the fire safety manager Dr. Rajput in one week. Thank you for allowing us to participate in your care and help you began your journey of sobriety! Discharge Disposition: HOME SELF-CARE <Jennifer Vanegas - Last Filed: 02/07/21 18:39> Providers Date of admission: 02/02/21 11:26 Attending physician: Jennifer Vanegas DO Consults: 02/02/21 11:26 Consult Physician Urgent Consulting Provider: Denis Driscoll Consult Reason/Comments: chest pain Do you want consulting provider notified?: Yes Primary care physician: Quincy Duarte MD Hospital Course: Edenilson Guzmán NP rendered care for this patient independently, reviewed the findings and plan as documented in the note above. I did not physically speak with or examine the patient on this date.
--- NOTE | 2021-02-08 10:40 | ECHOS ---
Stress Test Results/Findings: Exam Performed: dobutamine stress echo Exam Date: 02/04/21 Reason for Exam: Chest Pain Height: 6 ft Weight: 107.3 kg Protocol: Dobutamine Stage: 40 Duration of Exercise: 9:19 Resting Heart Rate: 62 Resting Blood Pressure: 129/92 Maximum Achieved Heart Rate: 139 Maximum Achieved Blood Pressure: 166/95 85% PMHR: 139 100% PMHR: 163 METS: na Technologist Comment: Stress Test Results/Findings: His is a 55-year-old gentleman with history of hypertension, hypercholesteremia, and smoking history, being evaluated for symptoms of chest pain and shortness of breath. Stress data: Baseline EKG showed sinus rhythm with normal MS and QRS duration. Blood pressure at rest is 120 02/17/1984 with pulse rate of 62. Patient walked on the Romaine protocol for 9 minutes 19 seconds achieving a maximal heart rate of 139 with a blood pressure 166/95. EKGs taken during and after exercise did not reveal any changes of ischemia. Patient did not experience any chest pain. No arrhythmias are noted. Echo data: Baseline echo images show normal wall motion and thickening. Exercise echo images showed augmentation of wall motion and thickening in all the segments. Final impression: #1. Negative stress test #2. Negative stress echo. CHAD
== END 2021-02-07 14:06 | disposition home or self-care (01) | DRG 897 ==
LOC: EC 07:55 → 3SCARD 11:26
PROVIDERS: ADMIT Internal Medicine; ATTEND Internal Medicine
DX: F10.239 Alcohol dependence with withdrawal, unspecified (principal); G40.509 Epileptic seizures related to external causes, not intractable, without status epilepticus; E78.5 Hyperlipidemia, unspecified; E83.42 Hypomagnesemia; E87.6 Hypokalemia; F41.9 Anxiety disorder, unspecified; I10 Essential (primary) hypertension; Y90.1 Blood alcohol level of 20-39 mg/100 ml; Z76.5 Malingerer [conscious simulation]; Z79.82 Long term (current) use of aspirin; Z79.899 Other long term (current) drug therapy; Z87.891 Personal history of nicotine dependence; K76.0 Fatty (change of) liver, not elsewhere classified; G89.29 Other chronic pain; M54.2 Cervicalgia; I71.2 Thoracic aortic aneurysm, without rupture
CPT/HCPCS: 36415; 71046; 71275; 80048; 80053; 80061; 80320; 83690; 83735; 84484; 85025; 85027; 85379; 85610; 85730; 93005; 93306; 93351; 94760; 96365; 96375; 99285

== ENCOUNTER → 2023-03-20 | Outpatient (CLI) | payer OTHER ==
[2023-03-20 16:26] LABS: Blood Urea Nitrogen 5.3 mg/dL (9.0-27.0); Carbon Dioxide 28.3 mmol/L (21.6-31.8); Chloride 106 mmol/L (96-109); Potassium 4.6 mmol/L (3.5-5.5); Sodium 142 mmol/L (135-145)
[2023-03-20 17:18] LABS: HCT 43.8 % (39.6-50.0); HGB 14.3 d/dL (13.0-17.0); MCH 30.4 pg (27.0-32.0); MCHC 32.6 d/dL (32.0-37.0); Mean Platelet Volume 11.2 FL (9.5-12.2); NRBC Per 100 WBC 0 X 10*3/uL (0.00-0.01); Platelet Count 199 X 10*3/uL (140-440); RBC 4.71 X 10*6/uL (4.40-5.60); RDW 12.3 % (11.5-14.5); WBC 7.51 X 10*3/uL (4.50-10.00)
== END | disposition home or self-care (01) ==
LOC: LABPAT 08:30
PROVIDERS: ATTEND Internal Medicine
DX: Z01.812 Encounter for preprocedural laboratory examination (principal); R94.31 Abnormal electrocardiogram [ECG] [EKG]; R06.02 Shortness of breath; R42 Dizziness and giddiness
CPT/HCPCS: 80051; 82565; 84520; 85027

== ENCOUNTER → 2023-06-07 | Outpatient (CLI) | payer OTHER ==
--- NOTE | 2023-06-08 10:36 | CT ---
EXAMINATION TYPE: CT right knee - [facility] Protocol DATE OF EXAM: 06/07/2023 COMPARISON: None HISTORY: pre-op right total knee CT DLP: 813 mGycm TECHNIQUE- CT of the right knee MARIAH protocol was performed. COMPARISON- none FINDINGS- There is bilateral hypertrophic arthropathy of the hips. Correlate for femoral acetabular impingement . There is mild concentric bladder wall thickening. Small fat-containing bilateral inguinal hernia. Hyp ertrophic arthropathy bilateral SI joint. There is severe medial compartment osteoarthritis. There is marginal spurring of the tricompartment j oint space and mild to moderate arthropathy of the patellofemoral joint. Sclerotic changes involving the medial tibial plateau and distal femur likely air post arthritic and reactive. Small suprapatella r bursal fluid collection. There is a popliteal fossa cyst measuring 2.8 cm. There is calcaneal spurring bilaterally. Spurring along the distal tibia is noted and there is a scle rotic lesion of the distal left tibia most typical of a bone infarct favored over chondroid lesion. IMPRESSION: 1. Severe osteoarthritis right knee. 2. Correlate for femoral acetabular impingement with bilateral hip arthropathy. 3. Intraosseous lesion at distal tibia. Favor bone infarct over chondroid lesion correlate clinically . Correlate for mild cystitis.
== END | disposition home or self-care (01) ==
LOC: RADCTMAIN 13:02
PROVIDERS: ATTEND Orthopaedic Surgery
DX: Z01.818 Encounter for other preprocedural examination (principal); M21.161 Varus deformity, not elsewhere classified, right knee; M17.0 Bilateral primary osteoarthritis of knee; M89.9 Disorder of bone, unspecified

== ENCOUNTER → 2023-06-07 | Outpatient (CLI) | payer OTHER ==
[2023-06-07 14:36] LABS: Partial Thromboplastin Time 26.8 sec (22.0-30.0); Prothrombin Time 11.1 sec (10.0-12.5)
[2023-06-07 18:31] LABS: HCT 42.9 % (39.6-50.0); HGB 14.3 g/dL (13.0-17.0); MCHC 33.3 g/dL (32.0-37.0); MCV 89.9 FL (80.0-97.0); Mean Platelet Volume 11.3 FL (9.5-12.2); NRBC Per 100 WBC 0 X 10*3/uL (0.00-0.01); Platelet Count 234 X 10*3/uL (140-440); RBC 4.77 X 10*6/uL (4.40-5.60); RDW 11.9 % (11.5-14.5); WBC 6.48 X 10*3/uL (4.50-10.00)
[2023-06-07 18:41] LABS: ALT 14 U/L (10-49); AST 12 U/L (14-35); Albumin 4.5 g/dL (3.8-4.9); Albumin/Globulin Ratio 2.05 Ratio (1.60-3.17); Alkaline Phosphatase 49 U/L (41-126); BUN/Creat Ratio 6.75 Ratio (12.00-20.00); Blood Urea Nitrogen 5.4 mg/dL (9.0-27.0); Calcium 9.7 mg/dL (8.7-10.3); Carbon Dioxide 26.8 mmol/L (21.6-31.8); Chloride 101 mmol/L (96-109); Globulin 2.2 g/dL (1.6-3.3); Glucose 124 mg/dL (70-110); Potassium 4.3 mmol/L (3.5-5.5); Sodium 139 mmol/L (135-145); Total Bilirubin 0.3 mg/dL (0.3-1.2); Total Protein 6.7 g/dL (6.2-8.2)
== END | disposition home or self-care (01) ==
LOC: LABPAT 13:36
PROVIDERS: ATTEND Orthopaedic Surgery
DX: Z01.818 Encounter for other preprocedural examination (principal); Z22.322 Carrier or suspected carrier of Methicillin resistant Staphylococcus aureus; M17.11 Unilateral primary osteoarthritis, right knee; R94.31 Abnormal electrocardiogram [ECG] [EKG]
CPT/HCPCS: 80053; 83036; 85027; 85610; 85730; 87070; 93005

== ENCOUNTER → 2023-06-30 | Outpatient (CLI) | payer OTHER ==
--- NOTE | 2023-07-01 18:10 | XR ---
EXAMINATION TYPE: XR chest 2V DATE OF EXAM: 06/30/2023 COMPARISON: 02/02/2021 INDICATION: Presurgical evaluation TECHNIQUE: Frontal and lateral views of the chest are obtained. FINDINGS: The heart size is normal. The pulmonary vasculature is normal. The lungs are clear. There is hyperinflation flattening the diaphragms compatible with COPD. Spondylosis is through the thoracic spine. IMPRESSION: 1. No acute pulmonary process. 2. COPD
== END | disposition home or self-care (01) ==
LOC: RADXRMAIN 14:46
PROVIDERS: ATTEND Family Medicine
DX: Z01.818 Encounter for other preprocedural examination (principal); J44.9 Chronic obstructive pulmonary disease, unspecified
CPT/HCPCS: 71046

== ENCOUNTER 2023-07-07 05:32 | Day surgery (SDC) | payer OTHER ==
[2023-06-30 09:03] VITALS: BMI 32.8
[2023-07-07] MEDS ORDERED: LIDOCAINE 1% (10MG/ML) FOR IV START INTRADERMA PRN (05:58)
[2023-07-07] MEDS ORDERED: ACETAMINOPHEN TAB 500 MG TAB PO PRN (06:00)
[2023-07-07] MEDS ORDERED: KETOROLAC 15 MG/ML 1 ML VIAL IVP PRN (06:00)
[2023-07-07] MEDS ORDERED: TRANEXAMIC 1,000 MG/100ML-NACL 1,000 MG in SALINE 1 100ML.BAG IVPB PRN (06:00)
[2023-07-07] MEDS ORDERED: DOCUSATE 100 MG CAP PO PRN (06:00)
[2023-07-07] MEDS ORDERED: DEXAMETHASONE SOD PHOSPHATE 10 MG/ML 1 ML VIAL IV PRN (06:00)
[2023-07-07] MEDS ORDERED: ONDANSETRON 4 MG/2 ML VIAL IVP PRN ×2 (06:00→10:37)
[2023-07-07] MEDS ORDERED: oxyCODONE ER 10 MG TAB.ER.12H PO PRN (06:00)
[2023-07-07] MEDS ORDERED: TRANEXAMIC 1,000 MG/100ML-NACL 1,000 MG in SALINE 1 100ML.BAG IV PRN (06:00)
[2023-07-07] MEDS ORDERED: FAMOTIDINE 20 MG/2 ML VIAL IVP PRN (06:00)
[2023-07-07] MEDS ORDERED: LACTATED RINGERS 1,000 ML IV ONE ×3 (06:20→13:11)
[2023-07-07] MEDS ORDERED: fentaNYL (PF) 50 MCG/ML 2 ML AMP IVP ONE (06:58)
[2023-07-07] MEDS ORDERED: MIDAZOLAM 2 MG/2 ML VIAL IVP ONE (06:58)
[2023-07-07] MEDS ORDERED: HYDROmorphone 0.5 MG/0.5 ML SYRINGE IVP PRN ×2 (07:00→10:37)
[2023-07-07 07:49] LABS: African American GFR (CKD) >90 (>60 ml/min/1.73 sqM); Anion Gap 5 mmol/L; Blood Urea Nitrogen 7 mg/dL (9-20); Calcium 9.1 mg/dL (8.4-10.2); Carbon Dioxide 29 mmol/L (22-30); Chloride 105 mmol/L (98-107); Glucose 127 mg/dL (74-99); Non-African American GFR(CKD) >90 (>60 ml/min/1.73 sqM); Potassium 3.9 mmol/L (3.5-5.1); Sodium 139 mmol/L (137-145)
[2023-07-07] MEDS ORDERED: fentaNYL (PF) 50 MCG/ML 2 ML AMP ONE (07:50)
[2023-07-07] MEDS ORDERED: SODIUM CHLORIDE 0.9% (PF) 10 ML VIAL ONE (07:50)
[2023-07-07] MEDS ORDERED: PROPOFOL 10 MG/ML 20 ML VIAL IV ONE (07:50)
[2023-07-07] MEDS ORDERED: LIDOCAINE 1% INJ 10MG/ML (20 ML MDV) ONE (07:50)
[2023-07-07] MEDS ORDERED: ROPIVACAINE 5 MG/ML 30 ML VIAL ONE (07:50)
[2023-07-07] MEDS ORDERED: HYDROmorphone (PF) 1 MG/ML ONE (07:50)
[2023-07-07] MEDS ORDERED: SUCCINYLCHOLINE CHLORIDE 200 MG/10 ML VIAL IV ONE (07:50)
[2023-07-07] MEDS ORDERED: DEXAMETHASONE SOD PHOSPHATE 4 MG/ML 1 ML VIAL ONE (07:50)
[2023-07-07] MEDS ORDERED: GLYCOPYRROLATE 0.2 MG/ML 2 ML VIAL ONE (07:50)
[2023-07-07] MEDS ORDERED: TRANEXAMIC 1,000 MG/100ML-NACL PREMIX BAG ONE (07:50)
[2023-07-07] MEDS ORDERED: MIDAZOLAM 2 MG/2 ML VIAL ONE (07:50)
[2023-07-07] MEDS ORDERED: KETAMINE HCL IN 0.9 % NACL 50 MG/5 ML SYRINGE ONE (07:50)
--- NOTE | 2023-07-07 07:53 | P.ANPRN ---
Procedure Note - Anesthesia - Nerve Block Performed Right Adductor Canal Single Time Out Performed: Yes Date of Procedure: 07/07/23 Procedure Start Time: 06:58 Procedure Stop Time: 07:05 Location of Patient: PreOp Indication: Acute Post-Operative Pain, Requested by Surgeon Sedation Type: Sedate with meaningful contact maintained Preparation: Sterile Prep Position: Supine Needle Types: Pajunk Needle Gauge: 21 Ultrasound used to visualize needle placement: Yes Ultrasound used to observe medication spread: Yes Injectate: 0.5% Ropivacaine (see comment for volume) (20 ml + 10 ml NS + 4 mg Dexamethasone) Blood Aspirated: No Pain Paresthesia on Injection Noted: No Resistance on Injection: Normal Image Stored and Saved: Yes Events: Uneventful and Well Tolerated
--- NOTE | 2023-07-07 07:55 | P.ANPRN ---
Procedure Note - Anesthesia - Nerve Block Performed Right iPack Single Time Out Performed: Yes Date of Procedure: 07/07/23 Procedure Start Time: 07:06 Procedure Stop Time: 07:13 Location of Patient: PreOp Indication: Acute Post-Operative Pain, Requested by Surgeon Sedation Type: Sedate with meaningful contact maintained Preparation: Sterile Prep Position: Left Lateral Needle Types: Pajunk Needle Gauge: 21 Ultrasound used to visualize needle placement: Yes Ultrasound used to observe medication spread: Yes Injectate: 0.5% Ropivacaine (see comment for volume) (20 ml + 10 ml NS + 4 mg dexamethasone) Blood Aspirated: No Pain Paresthesia on Injection Noted: No Resistance on Injection: Normal Image Stored and Saved: Yes Events: Uneventful and Well Tolerated
[2023-07-07] MEDS: ROPIVACAINE/EPI/CLONIDINE/KET 50 ML SYRINGE MISCELLANE PRN ×2 (08:27→09:35)
[2023-07-07] MEDS ORDERED: MAGNESIUM HYDROXIDE 2,400 MG/30 ML CUP PO PRN (10:37)
[2023-07-07] MEDS ORDERED: NALOXONE 0.4 MG/ML 1 ML VIAL IV PRN (10:37)
[2023-07-07] MEDS ORDERED: diazePAM 5 MG TAB PO PRN (10:37)
[2023-07-07] MEDS ORDERED: HYDROcodone/APAP 5-325MG 1 EACH TAB PO PRN (10:37)
--- NOTE | 2023-07-07 10:42 | P.OP ---
Date of Procedure: 07/07/23 Preoperative Diagnosis: Right knee osteoarthritis Postoperative Diagnosis: Same Procedure(s) Performed: 1. Right total knee arthroplasty 2. Computer assisted musculoskeletal navigation using CT/MRI images Implants: 1. Alessandra Triathlon CR Femur Size #5 2. Alessandra Triathlon [place] Tibial Base Size #5 3. Alessandra Triathlon CS poly Size #5, 9-mm 4. Alessandra Triathlon all poly patella, Size #32 Anesthesia: YAYAA, regional Surgeon: Eder Broussard Estimated Blood Loss (ml): 50 IV fluids (ml): 900 Pathology: none sent Condition: stable Disposition: PACU Indications for Procedure: I met with the patient preoperatively in the office setting and discussed treatment of their symptomatic knee arthritis. They failed a long course of nonsurgical treatment and elected to proceed with an elective total knee replacement. I discussed the potential risks and complications at length and gave them ample time to ask questions. Risks discussed included: risks from anesthesia, superficial site surgical infection, acute and/or chronic periprosthetic joint infection, delayed wound healing, drainage, wound necrosis, instability, stiffness, stiffness requiring manipulation and/or revision surgery, damage to local blood vessels or nerves, aseptic loosening of the implants, extensor mechanism issues including disruption, patellar maltracking, avascular necrosis etc., continued or worsened knee pain, generalized dissatisfaction with surgical outcome, need for revision surgery, an inability to regain preinjury level of function, DVT, PE, other medical complications, and possibly loss of life or limb. The patient voiced their understanding that while these are the most common complications other less common complications are possible. They provided both their verbal and written consent to go forward with surgery. Operative Findings: Severe right knee osteoarthritis with complete loss of joint space in the medial, patellofemoral and lateral compartments Description of Procedure: The patient was identified in preoperative holding and the correct operative extremity was verified and marked with a marker. I reviewed the consent form with the patient at length. All of their questions were answered. The patient was given a block by anesthesia. They were then brought back to the operating room. They were transferred onto the operating room table where a general anesthetic, preoperative antibiotics, and tranexamic acid were administered by anesthesia. A tourniquet was applied to the proximal aspect of the operative extremity. The contralateral extremity was padded under the heel and secured to the operating room table with a nonsterile blue towel and tape. The ipsilateral arm was carefully draped across the patient's chest and secured with a pillow and foam. A post was applied over the lateral aspect of the ipsilateral thigh and a bolster was placed under the ipsilateral foot. I verified that the operative extremity was stable and the knee was flexed to 90. The operative extremity was then placed in a leg stoll, nonsterile drapes were applied, and the extremity was prepped and draped sterilely in the standard sterile fashion. Prior to starting surgery timeout was performed identifying the correct patient, operative extremity, and procedure. The leg was then elevated, exsanguinated with an Esmarch bandage, and the tourniquet was inflated. An anterior midline incision was made sharply with a scalpel. Once I had dissected deep to the superficial fascial layer medial and lateral flaps were elevated. A medial parapatellar arthrotomy was created. Upon opening the knee joint there were diffuse arthritic changes in all 3 compartments. The anterior horn of the medial meniscus were sharply released and a medial release was per formed around the posterior medial corner of the knee to facilitate retractor placement. The fat pad was excised with electrocautery. The patella was found to be severely arthritic and a provisional cut was made with a sagittal saw to facilitate mobilization of the extensor mechanism during the procedure. Remnants of the ACL and PCL were then excised from the notch. 4 mm pins were then placed within the incision in the medial distal femur and proximal tibia. Arrays were applied to the pins and I verified they were completely tightened. The knee was then registered with the [employer] robot and manipulations in implant position were made to balance the knee and opitmize implant position. Using the Jamaal robotic saw all cuts were made in accordance with our plan. After all bony fragments had been removed the cuts were verified with the planar probe. The tibia was then subluxed forward and sized. The knee was brought into flexion and a lamina clinical quality assurance specialist was placed to allow removal of the meniscal remnants both medially and laterally as well as posterior osteophytes. Local anesthetic was then infiltrated around the joint capsule. Trial implants were then placed within the knee. Range of motion and collateral ligament tension was then evaluated. Adjustments in implant size and position were then made accordingly. Once the knee was felt to be appropriately balanced the Jamaal pins were removed. The patella was then recut, sized, and punched. A trial patellar button was then placed. With the trial components in place, the patella tracked midline. The femur was then drilled and the trial component removed. The trial tibial component was then appropriately rotated, pinned, and prepared for the keel. All trial components were then removed from the knee. The knee was thoroughly irrigated with pulsatile lavage. Cement was prepared via vacuum mixing in a bowl on the back table. I then hand pressurized cement into the femur and tibia and placed the implants beginning with the tibial base tray and poly liner, femoral component, and finally the patellar button. All extruded cement was removed including from the pin sites. Once the cement had hardened the knee was evaluated one final time with the final polyethylene liner in place. The knee had full extension and flexion and felt stable to varus and valgus stress throughout the arc of motion. The tourniquet was released and with the tourniquet down the patella tracked midline. All bleeders were controlled with electrocautery. The knee was then soaked for 3 minutes with a dilute Betadine soak. The knee was thoroughly irrigated using 3 L of sterile saline and pulsatile lavage. A deep drain was placed. The extensor mechanism was then reapproximated using pop off Vicryl sutures followed by a running barbed suture. The knee was then closed in layers with a 0 strata fix for the deep fascial layer, 2-0 strata fix for the superficial subcutaneous layer and Monocryl and Steri-Strips for the skin. A sterile dressing and drain sponge were applied. I verified that all instrument, sponge, and sharp counts were correct. The patient was then transferred off the operating room table, extubated, and b rought to recovery having tolerated the procedure well. PLAN: The patient can weight-bear as tolerated on the operative extremity. DVT prophylaxis with aspirin 81 mg twice a day based on preoperative risk stratification. Follow-up in the office in 2 weeks for wound check and x-rays of the knee including an AP and lateral.
[2023-07-07] MEDS ORDERED: HYDROmorphone 0.5 MG/0.5 ML SYRINGE IVP ONE (11:16)
--- NOTE | 2023-07-07 11:32 | XR ---
EXAMINATION TYPE: XR knee limited RT DATE OF EXAM: 07/07/2023 CLINICAL HISTORY: Right knee pain and arthritis status post total knee replacement. TECHNIQUE: Portable AP and crosstable lateral views of the right knee are obtained immediately posto peratively. COMPARISON: None FINDINGS: Metallic hardware from total right knee arthroplasty is seen and appears satisfactory in a lignment and position. There is evidence of recent surgery with diffuse subcutaneous gas and percut aneous suprapatellar surgical drain noted. IMPRESSION: METALLIC HARDWARE FROM TOTAL RIGHT KNEE ARTHROPLASTY IS SATISFACTORY IN ALIGNMENT.
[2023-07-07] MEDS ORDERED: HYDROcodone/APAP 5-325MG 1 EACH TAB PO ONE (11:50)
[2023-07-07] MEDS: LACTATED RINGERS 1,000 ML IV SCH (13:57)
[2023-07-07] MEDS: SODIUM CHLORIDE 0.9% 1,000 ML IV SCH ×2 (13:59→22:38)
[2023-07-07] MEDS: HYDROmorphone 1 MG/ML 1 ML SYRINGE IVP PRN ×2 (16:18→20:08)
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
[2023-07-07] MEDS: ASPIRIN 81 MG PO SCH (20:07)
[2023-07-07] MEDS: clonazePAM 0.5 MG TAB PO SCH (20:08)
[2023-07-07] MEDS ORDERED: SENNOSIDES-DOCUSATE SODIUM 1 EACH TAB PO SCH (21:00)
[2023-07-07] MEDS ORDERED: traZODone HCL 100 MG TAB PO SCH (21:00)
[2023-07-07] MEDS ORDERED: SERTRALINE 100 MG TAB PO SCH (21:00)
[2023-07-07] MEDS ORDERED: TEMAZEPAM 15 MG CAP PO PRN (22:00)
[2023-07-08] MEDS: hydrOXYzine pamoate 25 MG CAP PO PRN ×2 (00:04→04:20)
[2023-07-08] MEDS: HYDROmorphone 1 MG/ML 1 ML SYRINGE IVP PRN ×2 (00:04→04:19)
[2023-07-08] MEDS: LACTATED RINGERS 1,000 ML IV SCH (00:38)
[2023-07-08] MEDS: oxyCODONE-APAP 5-325MG 1 EACH TAB PO PRN ×2 (05:30→10:20)
[2023-07-08] MEDS: SODIUM CHLORIDE 0.9% 1,000 ML IV SCH (06:49)
--- NOTE | 2023-07-08 08:21 | P.DS ---
Providers Date of admission: Monday07/07/2023 Attending physician: Eder Broussard Consults: 07/07/23 10:37 Consult Physician Routine Consulting Provider: Jennifer Vanegas Consult Reason/Comments: post op medical management Do you want consulting provider notified?: Yes Primary care physician: Ramses [facility] Course: Patient was admitted 07/07 for an elective TKA. After surgery he was transferred to the ortho floor. He had 2 doses post op antibiotics. He was seen by IM. He worked with PT. He did well and was cleared for d/c home. Plan - Discharge Summary Discharge Rx Participant: No New Discharge Prescriptions: New Diclofenac Sodium [Voltaren] 75 mg PO BID #60 tab Omeprazole 40 mg PO DAILY #30 cap oxyCODONE-APAP 5-325MG [Percocet 5-325 mg] 1 - 2 tab PO Q6HR PRN 7 Days #32 tab PRN Reason: Pain Aspirin 81 mg PO BID #60 tab Docusate [Colace] 100 mg PO BID #28 capsule Continue Aspirin EC [Ecotrin Low Dose] 81 mg PO DAILY Magnesium 500 mg PO DAILY Sertraline [Zoloft] 100 mg PO BID clonazePAM 0.5 mg PO BID amLODIPine [Norvasc] 10 mg PO DAILY Ergocalciferol [Vitamin D2 (1250 Mcg = 95923 Iu)] 1,250 mcg PO Q14D Potassium Chloride 10 meq PO DAILY Ascorbic Acid/Multivit-Min [Emergen-C 1,000 mg Packet] 1,000 mg PO DAILY Testosterone Cypionate [Depo-Testosterone] 1 dose IM Q14D Atorvastatin [Lipitor] 20 mg PO DAILY traZODone HCL [Desyrel] 100 mg PO HS rOPINIRole HCL [Requip] 0.5 mg PO TID Furosemide [Lasix] 20 mg PO DAILY #90 tab HYDROcodone/APAP 10-325MG [[place] 10-325] 1 tab PO TID PRN PRN Reason: Pain Mupirocin 2% Oint [Bactroban 2% Oint] 1 applic NASAL DIRECTED PRN PRN Reason: Pre-Op Metoprolol Succinate [Toprol XL] 50 mg PO DAILY Discharge Medication List Aspirin EC [Ecotrin Low Dose] 81 mg PO DAILY 12/07/20 [History] Atorvastatin [Lipitor] 20 mg PO DAILY 12/07/20 [History] Magnesium 500 mg PO DAILY 08/17/21 [History] traZODone HCL [Desyrel] 100 mg PO HS 02/02/21 [History] Ergocalciferol [Vitamin D2 (1250 Mcg = 40351 Iu)] 1,250 mcg PO Q14D 03/27/23 [History] Sertraline [Zoloft] 100 mg PO BID 03/27/23 [History] amLODIPine [Norvasc] 10 mg PO DAILY 03/27/23 [History] clonazePAM 0.5 mg PO BID 03/27/23 [History] rOPINIRole HCL [Requip] 0.5 mg PO TID 03/27/23 [History] Furosemide [Lasix] 20 mg PO DAILY #90 tab 03/31/23 [Rx] Ascorbic Acid/Multivit-Min [Emergen-C 1,000 mg Packet] 1,000 mg PO DAILY 06/30/23 [History] HYDROcodone/APAP 10-325MG [[place] 10-325] 1 tab PO TID PRN 06/30/23 [History] Metoprolol Succinate [Toprol XL] 50 mg PO DAILY 06/30/23 [History] Mupirocin 2% Oint [Bactroban 2% Oint] 1 applic NASAL DIRECTED PRN 06/30/23 [History] Potassium Chloride 10 meq PO DAILY 06/30/23 [History] Testosterone Cypionate [Depo-Testosterone] 1 dose IM Q14D 06/30/23 [History] Aspirin 81 mg PO BID #60 tab 07/07/23 [Rx] Diclofenac Sodium [Voltaren] 75 mg PO BID #60 tab 07/07/23 [Rx] Docusate [Colace] 100 mg PO BID #28 capsule 07/07/23 [Rx] Omeprazole 40 mg PO DAILY #30 cap 07/07/23 [Rx] oxyCODONE-APAP 5-325MG [Percocet 5-325 mg] 1 - 2 tab PO Q6HR PRN 7 Days #32 tab 07/07/23 [Rx] Follow up Appointment(s)/Referral(s): Eder Broussard MD [Medical Doctor] - 2 Weeks Activity/Diet/Wound Care/Special Instructions: 1. Weight-bear as tolerated on your operative extremity unless instructed otherwise. Use a walker or other assistive device to ambulate. 2. Leave surgical dressing in place. If your dressing becomes saturated with blood, there is drainage, or the dressing becomes loose please contact the office. 3. It is okay to shower with your surgical dressing, but do not submerge in water (no hot tubs, bath's, swimming etc.) 4. Make sure to take her blood clot prevention medication as prescribed (aspirin, Eliquis, Xarelto, and Plavix are commonly prescribed medications for blood clot prevention) 5. While taking [place] or Percocet for pain make sure you're taking a stool softener (Colace) and drink lots of water. 6. Keep all follow-up appointments as scheduled. You will usually be seen in 1-2 weeks following surgery. 7. Please contact the office with any questions or concerns [phone] Discharge Disposition: HOME SELF-CARE
[2023-07-08 08:22] VITALS: BP 138/74; PULSE 77; RESP 19; TEMP 98.2
[2023-07-08] MEDS: ASPIRIN 81 MG PO SCH (08:26)
[2023-07-08] MEDS: clonazePAM 0.5 MG TAB PO SCH (08:27)
[2023-07-08] MEDS ORDERED: FUROSEMIDE 20 MG TAB PO SCH (09:00)
[2023-07-08] MEDS ORDERED: ATORVASTATIN 20 MG TAB PO SCH (09:00)
[2023-07-08] MEDS ORDERED: METOPROLOL SUCCINATE (ER) 50 MG TAB.ER.24H PO SCH (09:00)
[2023-07-08] MEDS ORDERED: amLODIPine 10 MG TAB PO SCH (09:00)
[2023-07-08] MEDS ORDERED: SERTRALINE 100 MG TAB PO SCH (09:00)
--- NOTE | 2023-07-08 10:51 | P.PN ---
Subjective Progress Note Date: 07/08/23 Patient is a 57-year-old male with a PMH of HTN, HLDA, Insomnia, RLS, anxiety disoder who was admitted for an elective right total knee replacement. Underwent surgery 07/07. [facility] consulted for medical management. 07/07 Patient was seen and examined. Reports 8.5/10 pain his right knee. Urinat ing freely. No bowel movement, not passing gas. No other complaints. BMP BUN 7, glu 127. 07/08 Patient was seen and examined. Most recent BP 130/76 HR 67. Passing gas. No complaints looking forward to going home. Vital signs reviewed General: non toxic, no distress, appears at stated age, normal weight Derm: no unusual rashes/lesions, warm Head: atraumatic, normocephalic, symmetric Eyes: EOMI, no lid lag, anicteric sclera ENT: Nose and ears atraumatic Neck: No cervical lymphadenopathy, trachea midline, supple Cardiovascular: Good distal perfusion in all 4 extremities Lungs: Breathing comfortably, no accessory muscle use Ext: no gross muscle atrophy, no contractures, Neuro: no gross focal neuro deficits Psych: Alert, oriented, appropriate affect Based on my assessment of this patient, this patient meets a moderate complexity level of care. Patient has a chronic diagnosis of HTN, HLDA, Insomnia, RLS, anxiety disoder. HTN: Amlodipine 10 mg PO QD. Metoprolol 50 mg PO QD. HLDA: Liptor 20 mg PO QD. Insomnia: Trazadone 100 mg PO QHS. RLS: Ropinirol 0.5 mg PO TID. Anxiety disorder: Klonopin 0.5 mg PO BID. Sertraline 100 mg PO QD. Medically stable for discharge. CODE STATUS: FULL CODE DVT Prophylaxis: ASA GI Prophylaxis: Designated medical POA if patient is not able to make medical decisions for themselves: I have reviewed the following food consultant notes: Ortho note. I have reviewed the results of the following tests: I have ordered the following tests: I have discussed the care of this patient with the following independent historian: Family member at bedside. RN. I have independently interpreted the following test below: I have discussed the management of this patient with the following physician: Objective - Vital Signs Vital signs: Vital Signs Temp 98.0 F 07/08/23 02:53 Pulse 67 07/08/23 02:53 Resp 21 07/08/23 02:53 BP 130/76 07/08/23 02:53 Pulse Ox 93 L 07/08/23 02:53 FiO2 Intake & Output 07/07/23 07/08/23 07/08/23 18:59 06:59 18:59 Intake Total 1800 900 Output Total 420 210 Balance 1380 690 Weight 110.3 kg Intake: IV 1800 Oral 900 Output: Drainage 180 210 Left Knee 180 210 Estimated Blood Loss 240 Other: # Voids 1 5 - Labs CBC & Chem 7: 07/07/23 06:37
[2023-07-08 13:10] LABS: HCT 32.1 % (39.6-50.0); HGB 10.8 g/dL (13.0-17.0); MCH 30.9 pg (27.0-32.0); MCHC 33.6 g/dL (32.0-37.0); MCV 91.7 FL (80.0-97.0); Mean Platelet Volume 11.5 FL (9.5-12.2); NRBC Per 100 WBC 0 X 10*3/uL (0.00-0.01); Platelet Count 184 X 10*3/uL (140-440); RDW 12.9 % (11.5-14.5); WBC 17.02 X 10*3/uL (4.50-10.00)
[2023-07-08 14:09] LABS: Basophils # (A) 0.03 X 10*3/uL (0.00-0.10); Basophils % (A) 0.2 %; Eosinophils # (A) 0 X 10*3/uL (0.04-0.35); Eosinophils % (A) 0 %; Lymphocytes # (A) 1.24 X 10*3/uL (0.90-5.00); Lymphocytes % (A) 7.3 %; Monocytes # (A) 1.56 X 10*3/uL (0.20-1.00); Monocytes % (A) 9.2 %; Neutrophils % (A) 82.8 %
== END 2023-07-08 11:29 | disposition home or self-care (01) ==
LOC: OR 05:32 → 4SSUR 10:22 → OR 07-08 11:29
PROVIDERS: ATTEND Orthopaedic Surgery
DX: M17.11 Unilateral primary osteoarthritis, right knee (principal); F41.9 Anxiety disorder, unspecified; G25.81 Restless legs syndrome; G89.29 Other chronic pain; I10 Essential (primary) hypertension; J44.9 Chronic obstructive pulmonary disease, unspecified; Z79.82 Long term (current) use of aspirin; Z79.899 Other long term (current) drug therapy; Z87.891 Personal history of nicotine dependence
CPT/HCPCS: 0055T; 27447; S2900; 64447; 64999; 80048; 85025